=== PATIENT | male | born 1945 | race Two or more races ===

== ENCOUNTER 2017-08-07 03:28 | Emergency (ER) | payer MEDICARE, MEDICAID ==
[~2017-08-07] VITALS: Ht 182.9 cm; Wt 125.6 kg
[~2017-08-07 03:28] MED LIST: ALLO300T PO; AMLO5TAB2 PO; ASPI-621 PO; ATOR40TA PO; BENA20TA61 PO; BENA40TA2 PO; CARV12.52 PO; CARV6.2512 PO; FEBU80TA2 PO; FURO20TA3 PO; FURO40TA6 PO; HYDR-3237 PO; METO25TA91 PO; MIRT15TA6 PO; POTA20TA6 PO; SODI650T PO; TAMS0.4C2 PO; TRAM50TA2 PO; WARF1TAB9 PO; WARF3TAB7 PO; WARF6TAB7 PO
[2017-08-07 04:55] LABS: HEMATOCRIT 42.5 % (39.2-51.8); HEMOGLOBIN 14.2 g/dL (13.7-18.0)
[2017-08-07 05:07] LABS: BLOOD UREA NITROGEN 43 mg/dL (7-18)
[2017-08-07 05:43] VITALS: BP 136/84
== END 2017-08-07 05:58 | disposition home or self-care (01) ==
LOC: ED 04:01
DX: R05 Cough (principal); R06.02 Shortness of breath; R07.9 Chest pain, unspecified; I11.0 Hypertensive heart disease with heart failure; I50.9 Heart failure, unspecified; M19.90 Unspecified osteoarthritis, unspecified site; F41.9 Anxiety disorder, unspecified; E66.01 Morbid (severe) obesity due to excess calories; Z87.891 Personal history of nicotine dependence; Z88.0 Allergy status to penicillin
CPT/HCPCS: 36415; 71020; 80048; 85025; 93005; 99285

== ENCOUNTER 2017-09-08 01:04 | Emergency (ER) | payer MEDICARE, MEDICAID ==
[~2017-09-08] VITALS: Ht 182.9 cm; Wt 123.1 kg
[2017-09-08] MEDS ORDERED: SODIUM CHLORIDE FLUSH 10ML SYR IVF ONE (01:30)
[2017-09-08 01:48] LABS: HEMATOCRIT 47.9 % (39.2-51.8); HEMOGLOBIN 15.5 g/dL (13.7-18.0); WHITE BLOOD COUNT 7.1 x10^3/uL (3.4-10)
[2017-09-08 01:56] LABS: ASPARTATE AMINO TRANSFERASE 23 U/L (15-37); BLOOD UREA NITROGEN 38 mg/dL (7-18)
[2017-09-08 03:36] VITALS: BP 159/88
== END 2017-09-08 04:18 | disposition home or self-care (01) ==
LOC: ED 01:34
DX: K59.00 Constipation, unspecified (principal); I11.0 Hypertensive heart disease with heart failure; I50.9 Heart failure, unspecified; M19.90 Unspecified osteoarthritis, unspecified site; Z90.49 Acquired absence of other specified parts of digestive tract
CPT/HCPCS: 36415; 74020; 80053; 81003; 83690; 85025; 99285

== ENCOUNTER 2017-10-01 21:05 | Emergency (ER) | payer MEDICARE, MEDICAID ==
[~2017-10-01] VITALS: Ht 180.3 cm; Wt 127.1 kg
[2017-10-01 22:14] LABS: HEMATOCRIT 48.1 % (39.2-51.8); WHITE BLOOD COUNT 7.1 x10^3/uL (3.4-10)
[2017-10-01 22:24] LABS: BLOOD UREA NITROGEN 38 mg/dL (7-18)
[2017-10-01 22:29] LABS: IS PT STATUS REG ER OR PRE ER? YES
[2017-10-01] MEDS ORDERED: FURO20TA3 PO (23:19)
[2017-10-01 23:32] VITALS: BP 151/87
== END 2017-10-01 23:34 | disposition home or self-care (01) ==
LOC: ED 22:20
DX: I50.31 Acute diastolic (congestive) heart failure (principal); I48.2 Chronic atrial fibrillation; R05 Cough; R06.00 Dyspnea, unspecified; M19.90 Unspecified osteoarthritis, unspecified site; E66.01 Morbid (severe) obesity due to excess calories; Z68.39 Body mass index [BMI] 39.0-39.9, adult; Z88.0 Allergy status to penicillin; Z90.49 Acquired absence of other specified parts of digestive tract
CPT/HCPCS: 36415; 71010; 80048; 82040; 83880; 84484; 85025; 85610; 93005; 99285

== ENCOUNTER 2017-10-21 06:52 | Emergency (ER) | payer MEDICARE, MEDICAID ==
[~2017-10-21] VITALS: Ht 182.9 cm; Wt 130.8 kg
[2017-10-21 09:00] LABS: BASOPHILS # (AUTO) 0.03 x10^3/uL (0-0.1); BASOPHILS % (AUTO) 1 % (0-1); EOSINOPHILS # (AUTO) 0.37 x10^3/uL (0-0.4); EOSINOPHILS % (AUTO) 7 % (1-7); LYMPHOCYTES % (AUTO) 16 % (22-44); MD NO; MEAN CORPUSCULAR HEMOGLOBIN 29.5 pg (27.5-34.5); MEAN CORPUSCULAR HGB CONC 33.1 g/dL (33.2-36.2); MEAN CORPUSCULAR VOLUME 89.2 fL (81-97); MEAN PLATELET VOLUME 8.2 fL (7.4-10.4); MONOCYTES # (AUTO) 0.69 x10^3/uL (0.2-0.8); MONOCYTES % (AUTO) 12 % (2-9); NEUTROPHILS # (AUTO) 3.74 x10^3/uL (1.8-6.8); NEUTROPHILS % (AUTO) 65 % (42-75); PLATELET COUNT 201 x10^3/uL (130-400); RED BLOOD COUNT 5.42 x10^6/uL (4.38-5.82); RED CELL DISTRIBUTION WIDTH 15.9 % (9.4-14.8)
[2017-10-21 09:08] LABS: INTERNATIONAL NORMALIZED RATIO 2.98 (0.93-1.1); PROTHROMBIN TIME 30.3 Seconds (9.6-11.5)
[2017-10-21 09:13] LABS: ALBUMIN 3.8 g/dL (3.4-5.0); ANION GAP 6 mmol/L (5-15); CALCIUM 8.6 mg/dL (8.5-10.1); CHLORIDE 107 mmol/L (98-107); CREATININE 1.44 mg/dL (0.7-1.3)
[2017-10-21 10:06] VITALS: BP 137/73
== END 2017-10-21 10:21 | disposition home or self-care (01) ==
LOC: ED 10:14
DX: J01.10 Acute frontal sinusitis, unspecified (principal); J01.00 Acute maxillary sinusitis, unspecified; I48.91 Unspecified atrial fibrillation; I50.9 Heart failure, unspecified; I11.0 Hypertensive heart disease with heart failure
CPT/HCPCS: 36415; 71045; 80048; 82040; 83880; 85025; 85610; 93005; 99285

== ENCOUNTER 2017-10-28 14:04 | Inpatient (IN) | payer MEDICARE, MEDICAID ==
[~2017-10-28] VITALS: Ht 182.9 cm; Wt 134.5 kg
[2017-10-28] MEDS ORDERED: SODIUM CHLORIDE FLUSH 10ML SYR IVF ONE (15:00)
[2017-10-28] MEDS ORDERED: SODIUM CHLORIDE 0.9% 1,000ML IVBOLUS ONE (15:00)
[2017-10-28 15:21] LABS: BASOPHILS # (AUTO) 0.02 x10^3/uL (0-0.1); BASOPHILS % (AUTO) 0 % (0-1); EOSINOPHILS # (AUTO) 0.29 x10^3/uL (0-0.4); EOSINOPHILS % (AUTO) 4 % (1-7); LYMPHOCYTES % (AUTO) 14 % (22-44); MD NO; MEAN CORPUSCULAR HEMOGLOBIN 29.5 pg (27.5-34.5); MEAN CORPUSCULAR HGB CONC 32.8 g/dL (33.2-36.2); MEAN CORPUSCULAR VOLUME 89.9 fL (81-97); MEAN PLATELET VOLUME 8.3 fL (7.4-10.4); MONOCYTES # (AUTO) 0.77 x10^3/uL (0.2-0.8); MONOCYTES % (AUTO) 10 % (2-9); NEUTROPHILS # (AUTO) 5.75 x10^3/uL (1.8-6.8); NEUTROPHILS % (AUTO) 73 % (42-75); PLATELET COUNT 193 x10^3/uL (130-400); RED BLOOD COUNT 5.36 x10^6/uL (4.38-5.82); RED CELL DISTRIBUTION WIDTH 15.6 % (9.4-14.8)
[2017-10-28 15:32] LABS: ALBUMIN 3.6 g/dL (3.4-5.0); ANION GAP 7 mmol/L (5-15); CALCIUM 8.7 mg/dL (8.5-10.1); CHLORIDE 105 mmol/L (98-107)
[2017-10-28 15:38] LABS: ALANINE AMINOTRANSFERASE 78 U/L (12-78); ALKALINE PHOSPHATASE 117 U/L (45-117); BILIRUBIN,TOTAL 0.9 mg/dL (0.2-1.0); CREATININE 1.58 mg/dL (0.7-1.3); TOTAL PROTEIN 7.8 g/dL (6.4-8.2); TROPONIN I < 0.015 ng/mL (0.000-0.045)
[2017-10-28] MEDS ORDERED: morphine SULFATE 10 MG/ML, 1ML IVPush PRN (17:00)
[2017-10-28] MEDS ORDERED: NITROGLYCERIN 0.4 MG BOTTLE (25 TABS) SL PRN (17:00)
[2017-10-28] MEDS ORDERED: BISACODYL 10 MG SUPP PR PRN (17:00)
[2017-10-28] MEDS ORDERED: LABETALOL 5MG/ML, 20ML IVPush PRN (17:00)
[2017-10-28] MEDS ORDERED: ENALAPRILAT 1.25 MG/ML, 2ML IVPush PRN (17:00)
[2017-10-28] MEDS ORDERED: POLYETHYLENE GLYCOL 17 GM PACKET PO PRN (17:00)
[2017-10-28] MEDS ORDERED: PHARMACY MAY ADJ FOR RENAL FX MC PRN (17:30)
[2017-10-28] MEDS ORDERED: LEVOFLOXACIN/PMX 750MG/150ML 150 ML ONE (18:21)
[2017-10-28 20:44] VITALS: BP 153/74
[2017-10-28] MEDS: ATORVASTATIN 40 MG TABLET PO SCH (21:35)
[2017-10-28] MEDS: LEVOFLOXACIN/PMX 750MG/150ML 150 ML IV SCH (21:36)
[2017-10-28] MEDS: MIRTAZAPINE 15 MG TAB.RAPDIS PO PRN (21:39)
[2017-10-28] MEDS: ACETAMINOPHEN 325 MG TABLET PO PRN (23:29)
[2017-10-29] VITALS (7 sets, daily range): BP systolic 128–167; BP diastolic 71–85
[2017-10-29 05:32] LABS: BASOPHILS # (AUTO) 0.05 x10^3/uL (0-0.1); BASOPHILS % (AUTO) 1 % (0-1); EOSINOPHILS # (AUTO) 0.32 x10^3/uL (0-0.4); EOSINOPHILS % (AUTO) 5 % (1-7); LYMPHOCYTES # (AUTO) 1.02 x10^3/uL (1-3.4); LYMPHOCYTES % (AUTO) 17 % (22-44); MD NO; MEAN CORPUSCULAR HGB CONC 33.6 g/dL (33.2-36.2); MEAN CORPUSCULAR VOLUME 89.2 fL (81-97); MEAN PLATELET VOLUME 8.2 fL (7.4-10.4); MONOCYTES # (AUTO) 0.75 x10^3/uL (0.2-0.8); MONOCYTES % (AUTO) 13 % (2-9); NEUTROPHILS # (AUTO) 3.85 x10^3/uL (1.8-6.8); NEUTROPHILS % (AUTO) 64 % (42-75); PLATELET COUNT 173 x10^3/uL (130-400); RED BLOOD COUNT 5.07 x10^6/uL (4.38-5.82); RED CELL DISTRIBUTION WIDTH 15.7 % (9.4-14.8)
[2017-10-29 05:47] LABS: CHLORIDE 106 mmol/L (98-107)
[2017-10-29 05:53] LABS: ALANINE AMINOTRANSFERASE 68 U/L (12-78); ALBUMIN 3.4 g/dL (3.4-5.0); ALKALINE PHOSPHATASE 98 U/L (45-117); ANION GAP 7 mmol/L (5-15); BILIRUBIN,TOTAL 1.1 mg/dL (0.2-1.0); CALCIUM 8.7 mg/dL (8.5-10.1); CREATININE 1.47 mg/dL (0.7-1.3); TOTAL PROTEIN 7.2 g/dL (6.4-8.2)
[2017-10-29] MEDS: ASPIRIN 325 MG TABLET EC PO SCH (06:00)
[2017-10-29] MEDS ORDERED: FUROSEMIDE 40 MG/4 ML IV ONE (08:00)
[2017-10-29] MEDS: FUROSEMIDE 40 MG TABLET PO SCH (09:00)
[2017-10-29] MEDS ORDERED: ASPIRIN 81 MG TABLET EC PO SCH (09:00)
[2017-10-29] MEDS: SODIUM BICARBONATE 650 MG TABLET PO SCH (09:02)
[2017-10-29] MEDS: AMLODIPINE 5 MG TABLET PO SCH (09:02)
[2017-10-29] MEDS: FEBUXOSTAT 40 MG TABLET PO SCH (09:02)
[2017-10-29] MEDS: TAMSULOSIN 0.4 MG CAP.ER.24H PO SCH (09:02)
[2017-10-29] MEDS: POTASSIUM CHLORIDE 20 MEQ TAB.ER.PRT PO SCH (09:02)
[2017-10-29] MEDS: METOPROLOL SUCCINATE 25 MG TAB.ER.24H PO SCH (09:04)
[2017-10-29 11:43] LABS: INTERNATIONAL NORMALIZED RATIO 2.25 (0.93-1.1)
[2017-10-29] MEDS: ACETAMINOPHEN 325 MG TABLET PO PRN (13:53)
[2017-10-29] MEDS: LEVOFLOXACIN/PMX 750MG/150ML 150 ML IV SCH (16:19)
[2017-10-29] MEDS: ATORVASTATIN 40 MG TABLET PO SCH (21:45)
[2017-10-29] MEDS: MIRTAZAPINE 15 MG TAB.RAPDIS PO PRN (21:45)
[2017-10-29] MEDS: DOCUSATE 100 MG CAPSULE PO PRN (21:45)
[2017-10-30 02:15] VITALS: BP 152/83
[2017-10-30 07:07] LABS: ANION GAP 7 mmol/L (5-15); CALCIUM 8.5 mg/dL (8.5-10.1); CHLORIDE 107 mmol/L (98-107)
[2017-10-30 07:13] LABS: CREATININE 1.51 mg/dL (0.7-1.3)
[2017-10-30 07:46] VITALS: BP 141/74
[2017-10-30] MEDS: POTASSIUM CHLORIDE 20 MEQ TAB.ER.PRT PO SCH (10:22)
[2017-10-30] MEDS: FUROSEMIDE 40 MG TABLET PO SCH (10:22)
[2017-10-30] MEDS: ASPIRIN 325 MG TABLET EC PO SCH (10:23)
[2017-10-30] MEDS: TAMSULOSIN 0.4 MG CAP.ER.24H PO SCH (10:23)
[2017-10-30] MEDS: AMLODIPINE 5 MG TABLET PO SCH (10:23)
[2017-10-30] MEDS: FEBUXOSTAT 40 MG TABLET PO SCH (10:23)
[2017-10-30] MEDS: SODIUM BICARBONATE 650 MG TABLET PO SCH (10:23)
[2017-10-30 10:24] LABS: INTERNATIONAL NORMALIZED RATIO 2.15 (0.93-1.1)
[2017-10-30 10:29] LABS: ANION GAP 7 mmol/L (5-15); CALCIUM 8.8 mg/dL (8.5-10.1); CHLORIDE 106 mmol/L (98-107); CREATININE 1.46 mg/dL (0.7-1.3)
[2017-10-30] MEDS: METOPROLOL SUCCINATE 25 MG TAB.ER.24H PO SCH (11:21)
[2017-10-30 14:18] VITALS: BP 148/78
[2017-10-30] MEDS: SODIUM CHLORIDE 0.9% 1,000 ML IV SCH (16:36)
[2017-10-30] MEDS: LEVOFLOXACIN/PMX 750MG/150ML 150 ML IV SCH (16:48)
[2017-10-30 19:43] VITALS: BP 162/85
[2017-10-30] MEDS: ATORVASTATIN 40 MG TABLET PO SCH (19:57)
[2017-10-30] MEDS: MIRTAZAPINE 15 MG TAB.RAPDIS PO PRN (22:19)
[2017-10-31 01:22] VITALS: BP 142/74
[2017-10-31 05:55] LABS: BASOPHILS # (AUTO) 0.02 x10^3/uL (0-0.1); BASOPHILS % (AUTO) 0 % (0-1); EOSINOPHILS # (AUTO) 0.39 x10^3/uL (0-0.4); EOSINOPHILS % (AUTO) 7 % (1-7); LYMPHOCYTES # (AUTO) 0.83 x10^3/uL (1-3.4); LYMPHOCYTES % (AUTO) 14 % (22-44); MD NO; MEAN CORPUSCULAR HEMOGLOBIN 29.8 pg (27.5-34.5); MEAN CORPUSCULAR HGB CONC 33.5 g/dL (33.2-36.2); MEAN CORPUSCULAR VOLUME 89.2 fL (81-97); MEAN PLATELET VOLUME 8.6 fL (7.4-10.4); MONOCYTES # (AUTO) 0.79 x10^3/uL (0.2-0.8); MONOCYTES % (AUTO) 13 % (2-9); NEUTROPHILS # (AUTO) 4.02 x10^3/uL (1.8-6.8); NEUTROPHILS % (AUTO) 66 % (42-75); PLATELET COUNT 152 x10^3/uL (130-400); RED BLOOD COUNT 4.97 x10^6/uL (4.38-5.82); RED CELL DISTRIBUTION WIDTH 15.2 % (9.4-14.8)
[2017-10-31 06:04] LABS: INTERNATIONAL NORMALIZED RATIO 2.13 (0.93-1.1); PROTHROMBIN TIME 21.8 Seconds (9.6-11.5)
[2017-10-31 06:06] LABS: ANION GAP 8 mmol/L (5-15); CALCIUM 8.4 mg/dL (8.5-10.1); CHLORIDE 108 mmol/L (98-107); CREATININE 1.57 mg/dL (0.7-1.3)
[2017-10-31] MEDS: ASPIRIN 325 MG TABLET EC PO SCH (06:43)
[2017-10-31 08:05] VITALS: BP 156/77
[2017-10-31] MEDS: SODIUM CHLORIDE 0.9% 1,000 ML IV SCH (08:06)
[2017-10-31] MEDS: HYDROcodone/APAP 5/325 TABLET PO PRN ×2 (08:06→17:03)
[2017-10-31] MEDS: AMLODIPINE 5 MG TABLET PO SCH (08:07)
[2017-10-31] MEDS: METOPROLOL SUCCINATE 25 MG TAB.ER.24H PO SCH (08:07)
[2017-10-31] MEDS: POTASSIUM CHLORIDE 20 MEQ TAB.ER.PRT PO SCH (08:07)
[2017-10-31] MEDS: DOCUSATE 100 MG CAPSULE PO PRN (08:07)
[2017-10-31] MEDS: FEBUXOSTAT 40 MG TABLET PO SCH (08:07)
[2017-10-31] MEDS: TAMSULOSIN 0.4 MG CAP.ER.24H PO SCH (08:08)
[2017-10-31] MEDS: SODIUM BICARBONATE 650 MG TABLET PO SCH (08:15)
[2017-10-31 13:36] VITALS: BP 154/78
[2017-10-31] MEDS: LEVOFLOXACIN/PMX 750MG/150ML 150 ML IV SCH (18:41)
[2017-10-31 18:49] VITALS: BP 183/84
[2017-10-31] MEDS: ATORVASTATIN 40 MG TABLET PO SCH (21:22)
[2017-11-01 00:59] VITALS: BP 150/89
[2017-11-01] MEDS: HYDROcodone/APAP 5/325 TABLET PO PRN (04:31)
[2017-11-01] MEDS: ASPIRIN 325 MG TABLET EC PO SCH (04:31)
[2017-11-01 06:40] VITALS: BP 159/79
[2017-11-01] MEDS ORDERED: WARFARIN MODERAT DOSE PROTOCOL XX PRN (08:00)
[2017-11-01 08:23] LABS: INTERNATIONAL NORMALIZED RATIO 1.69 (0.93-1.1); PROTHROMBIN TIME 17.4 Seconds (9.6-11.5)
[2017-11-01] MEDS: AMLODIPINE 5 MG TABLET PO SCH ×2 (09:25→20:55)
[2017-11-01] MEDS: METOPROLOL SUCCINATE 25 MG TAB.ER.24H PO SCH (09:25)
[2017-11-01] MEDS: FEBUXOSTAT 40 MG TABLET PO SCH (09:26)
[2017-11-01] MEDS: TAMSULOSIN 0.4 MG CAP.ER.24H PO SCH (09:26)
[2017-11-01] MEDS: POTASSIUM CHLORIDE 20 MEQ TAB.ER.PRT PO SCH (09:26)
[2017-11-01] MEDS: SODIUM BICARBONATE 650 MG TABLET PO SCH (09:26)
[2017-11-01] MEDS: FUROSEMIDE 40 MG TABLET PO SCH (09:26)
[2017-11-01] MEDS: DOCUSATE 100 MG CAPSULE PO PRN (11:34)
[2017-11-01 14:34] VITALS: BP 165/91
[2017-11-01] MEDS ORDERED: WARFARIN 7.5 MG TABLET PO-COUM ONE (18:00)
[2017-11-01] MEDS: LEVOFLOXACIN/PMX 750MG/150ML 150 ML IV SCH (18:32)
[2017-11-01] MEDS ORDERED: BISACODYL 10 MG SUPP PR ONE (19:30)
[2017-11-01 20:50] VITALS: BP 170/91
[2017-11-01] MEDS: ATORVASTATIN 40 MG TABLET PO SCH (20:54)
[2017-11-02 02:25] VITALS: BP 130/77
[2017-11-02 06:03] LABS: INTERNATIONAL NORMALIZED RATIO 1.86 (0.93-1.1); PROTHROMBIN TIME 19.1 Seconds (9.6-11.5)
[2017-11-02 07:40] VITALS: BP 156/83
[2017-11-02] MEDS: FEBUXOSTAT 40 MG TABLET PO SCH (08:58)
[2017-11-02] MEDS: POTASSIUM CHLORIDE 20 MEQ TAB.ER.PRT PO SCH (08:58)
[2017-11-02] MEDS: TAMSULOSIN 0.4 MG CAP.ER.24H PO SCH (08:58)
[2017-11-02] MEDS: ASPIRIN 325 MG TABLET EC PO SCH (08:58)
[2017-11-02] MEDS: AMLODIPINE 5 MG TABLET PO SCH (08:59)
[2017-11-02] MEDS: METOPROLOL SUCCINATE 25 MG TAB.ER.24H PO SCH (08:59)
[2017-11-02] MEDS: SODIUM BICARBONATE 650 MG TABLET PO SCH (08:59)
[2017-11-02] MEDS: FUROSEMIDE 40 MG TABLET PO SCH (08:59)
[2017-11-02 12:00] VITALS: BP 147/76
[2017-11-02] MEDS ORDERED: AMLO5TAB2 PO (12:29)
[2017-11-02] MEDS ORDERED: FUROSEMIDE 40 MG/4 ML IV ONE (15:00)
[2017-11-02] MEDS ORDERED: WARFARIN 3 MG TABLET PO-COUM SCH (18:00)
== END 2017-11-02 16:42 | disposition home or self-care (01) | DRG 682 ==
LOC: ED 15:50 → EDIP 17:00 → 5SO 17:50 → EDIP 19:18 → 5SO 20:36
PROVIDERS: ADMIT Internal Medicine; ATTEND Internal Medicine
DX: N17.0 Acute kidney failure with tubular necrosis (principal); J18.9 Pneumonia, unspecified organism; J96.01 Acute respiratory failure with hypoxia; D68.69 Other thrombophilia; I13.0 Hypertensive heart and chronic kidney disease with heart failure and stage 1 through stage 4 chronic kidney disease, or unspecified chronic kidney disease; I48.2 Chronic atrial fibrillation; I50.9 Heart failure, unspecified; I08.3 Combined rheumatic disorders of mitral, aortic and tricuspid valves; I20.0 Unstable angina; Z68.41 Body mass index [BMI] 40.0-44.9, adult; E66.9 Obesity, unspecified; E78.5 Hyperlipidemia, unspecified; K59.00 Constipation, unspecified; M10.9 Gout, unspecified; M19.90 Unspecified osteoarthritis, unspecified site; N18.3 Chronic kidney disease, stage 3 (moderate); Z79.01 Long term (current) use of anticoagulants; Z79.82 Long term (current) use of aspirin; Z79.899 Other long term (current) drug therapy; Z87.442 Personal history of urinary calculi; Z87.891 Personal history of nicotine dependence; Z88.0 Allergy status to penicillin; Z90.49 Acquired absence of other specified parts of digestive tract
CPT/HCPCS: 36415; 71046; 80048; 80053; 83735; 83880; 84100; 84145; 84484; 85025; 85610; 87040; 93005; 93306; 99285; J1940; J1956; J2270; J7030

== ENCOUNTER 2017-11-18 05:25 | Emergency (ER) | payer MEDICARE, MEDICAID ==
[~2017-11-18] VITALS: Ht 182.9 cm; Wt 130.7 kg
[2017-11-18 07:39] LABS: BASOPHILS # (AUTO) 0.01 x10^3/uL (0-0.1); BASOPHILS % (AUTO) 0 % (0-1); EOSINOPHILS # (AUTO) 0.38 x10^3/uL (0-0.4); EOSINOPHILS % (AUTO) 7 % (1-7); LYMPHOCYTES # (AUTO) 0.67 x10^3/uL (1-3.4); LYMPHOCYTES % (AUTO) 12 % (22-44); MD NO; MEAN CORPUSCULAR HEMOGLOBIN 29.4 pg (27.5-34.5); MEAN CORPUSCULAR HGB CONC 32.9 g/dL (33.2-36.2); MEAN CORPUSCULAR VOLUME 89.6 fL (81-97); MEAN PLATELET VOLUME 8.6 fL (7.4-10.4); MONOCYTES # (AUTO) 0.65 x10^3/uL (0.2-0.8); MONOCYTES % (AUTO) 11 % (2-9); NEUTROPHILS # (AUTO) 4.07 x10^3/uL (1.8-6.8); NEUTROPHILS % (AUTO) 70 % (42-75); PLATELET COUNT 194 x10^3/uL (130-400); RED CELL DISTRIBUTION WIDTH 14.5 % (9.4-14.8)
[2017-11-18 07:47] LABS: ALANINE AMINOTRANSFERASE 34 U/L (12-78); ALBUMIN 3.7 g/dL (3.4-5.0); ANION GAP 6 mmol/L (5-15); CALCIUM 8.6 mg/dL (8.5-10.1); CHLORIDE 105 mmol/L (98-107); CREATININE 1.63 mg/dL (0.7-1.3)
[2017-11-18 07:51] LABS: ALKALINE PHOSPHATASE 103 U/L (45-117); BILIRUBIN,TOTAL 0.7 mg/dL (0.2-1.0); TOTAL PROTEIN 7.1 g/dL (6.4-8.2); TROPONIN I < 0.015 ng/mL (0.000-0.045)
[2017-11-18 07:58] LABS: INTERNATIONAL NORMALIZED RATIO 1.93 (0.93-1.1); PROTHROMBIN TIME 19.8 Seconds (9.6-11.5)
[2017-11-18 10:09] VITALS: BP 146/67
== END 2017-11-18 10:40 | disposition home or self-care (01) ==
LOC: ED 06:49
DX: I50.9 Heart failure, unspecified (principal); R05 Cough; E66.01 Morbid (severe) obesity due to excess calories; I48.91 Unspecified atrial fibrillation; I11.9 Hypertensive heart disease without heart failure; Z90.49 Acquired absence of other specified parts of digestive tract
CPT/HCPCS: 36415; 71045; 80053; 83605; 83880; 84145; 84484; 85025; 85610; 85730; 87040; 93005; 99285

== ENCOUNTER 2017-11-25 23:48 | Emergency (ER) | payer MEDICARE, MEDICAID ==
[~2017-11-25] VITALS: Ht 190.5 cm; Wt 131.0 kg
[2017-11-26] MEDS ORDERED: MAALOX/HYOSCYAMINE/LIDOCAINE 45 ML BTL PO ONE (00:30)
[2017-11-26] MEDS ORDERED: FAMOTIDINE 20 MG TABLET PO ONE (00:30)
[2017-11-26] MEDS ORDERED: MAALOX/HYOSCYAMINE/LIDOCAINE 45 ML BTL ONE (00:41)
[2017-11-26] MEDS ORDERED: FAMOTIDINE 20 MG TABLET ONE (00:42)
[2017-11-26 01:02] VITALS: BP 154/77
== END 2017-11-26 01:04 | disposition home or self-care (01) ==
LOC: ED 23:59
DX: K21.9 Gastro-esophageal reflux disease without esophagitis (principal); I48.91 Unspecified atrial fibrillation; E66.01 Morbid (severe) obesity due to excess calories; M10.9 Gout, unspecified; M19.90 Unspecified osteoarthritis, unspecified site; Z90.49 Acquired absence of other specified parts of digestive tract; Z88.0 Allergy status to penicillin
CPT/HCPCS: 93005; 99283

== ENCOUNTER 2017-12-09 16:09 | Emergency (ER) | payer MEDICARE, MEDICAID ==
[~2017-12-09] VITALS: Ht 182.9 cm; Wt 131.0 kg
[2017-12-09 16:50] LABS: BASOPHILS # (AUTO) 0.04 x10^3/uL (0-0.1); BASOPHILS % (AUTO) 1 % (0-1); EOSINOPHILS # (AUTO) 0.37 x10^3/uL (0-0.4); EOSINOPHILS % (AUTO) 5 % (1-7); LYMPHOCYTES # (AUTO) 1.16 x10^3/uL (1-3.4); LYMPHOCYTES % (AUTO) 16 % (22-44); MD NO; MEAN CORPUSCULAR HGB CONC 33.8 g/dL (33.2-36.2); MEAN PLATELET VOLUME 8.4 fL (7.4-10.4); MONOCYTES # (AUTO) 0.61 x10^3/uL (0.2-0.8); MONOCYTES % (AUTO) 9 % (2-9); NEUTROPHILS % (AUTO) 69 % (42-75); PLATELET COUNT 176 x10^3/uL (130-400); RED BLOOD COUNT 5.49 x10^6/uL (4.38-5.82); RED CELL DISTRIBUTION WIDTH 13.7 % (9.4-14.8)
[2017-12-09 17:03] LABS: ALANINE AMINOTRANSFERASE 47 U/L (12-78); ALBUMIN 3.7 g/dL (3.4-5.0); ANION GAP 10 mmol/L (5-15); CALCIUM 8.3 mg/dL (8.5-10.1); CHLORIDE 105 mmol/L (98-107); CREATININE 1.75 mg/dL (0.7-1.3)
[2017-12-09 17:08] LABS: ALKALINE PHOSPHATASE 122 U/L (45-117); BILIRUBIN,TOTAL 0.7 mg/dL (0.2-1.0); TROPONIN I 0.018 ng/mL (0.000-0.045)
[2017-12-09 20:57] VITALS: BP 152/82
== END 2017-12-09 20:59 | disposition home or self-care (01) ==
LOC: ED 19:37
DX: R05 Cough (principal); Z90.49 Acquired absence of other specified parts of digestive tract; E66.01 Morbid (severe) obesity due to excess calories; F41.9 Anxiety disorder, unspecified; I48.91 Unspecified atrial fibrillation; K21.9 Gastro-esophageal reflux disease without esophagitis; M10.9 Gout, unspecified; M19.90 Unspecified osteoarthritis, unspecified site
CPT/HCPCS: 36415; 71046; 80053; 83690; 83880; 84484; 85025; 93005; 99285

== ENCOUNTER 2017-12-15 02:39 | Inpatient (IN) | payer MEDICARE, MEDICAID ==
[~2017-12-15] VITALS: Ht 190.5 cm; Wt 129.0 kg
[2017-12-15 03:23] LABS: BASOPHILS # (AUTO) 0.05 x10^3/uL (0-0.1); BASOPHILS % (AUTO) 1 % (0-1); EOSINOPHILS # (AUTO) 0.31 x10^3/uL (0-0.4); EOSINOPHILS % (AUTO) 4 % (1-7); LYMPHOCYTES # (AUTO) 0.92 x10^3/uL (1-3.4); LYMPHOCYTES % (AUTO) 12 % (22-44); MD NO; MEAN CORPUSCULAR HEMOGLOBIN 29.6 pg (27.5-34.5); MEAN CORPUSCULAR HGB CONC 33.5 g/dL (33.2-36.2); MEAN CORPUSCULAR VOLUME 88.4 fL (81-97); MONOCYTES # (AUTO) 0.92 x10^3/uL (0.2-0.8); MONOCYTES % (AUTO) 12 % (2-9); NEUTROPHILS # (AUTO) 5.32 x10^3/uL (1.8-6.8); NEUTROPHILS % (AUTO) 71 % (42-75); PLATELET COUNT 176 x10^3/uL (130-400); RED BLOOD COUNT 4.89 x10^6/uL (4.38-5.82); RED CELL DISTRIBUTION WIDTH 13.9 % (9.4-14.8)
[2017-12-15 03:36] LABS: ALANINE AMINOTRANSFERASE 32 U/L (12-78); ALBUMIN 3.3 g/dL (3.4-5.0); ANION GAP 7 mmol/L (5-15); CALCIUM 8.4 mg/dL (8.5-10.1); CHLORIDE 105 mmol/L (98-107); CREATININE 1.75 mg/dL (0.7-1.3)
[2017-12-15 03:40] LABS: ALKALINE PHOSPHATASE 105 U/L (45-117); BILIRUBIN,TOTAL 0.7 mg/dL (0.2-1.0); TROPONIN I 0.016 ng/mL (0.000-0.045)
[2017-12-15 04:52] LABS: MICROSCOPIC AUTO
[2017-12-15 04:54] LABS: CULTURE INDICATED? NO
[2017-12-15] MEDS ORDERED: ONDANSETRON 2MG/ML, 2ML IVPush PRN ×2 (06:30→08:30)
[2017-12-15] MEDS ORDERED: MORPHINE SULFATE 4 MG/ML, 1ML IVPush PRN (06:30)
[2017-12-15 08:01] VITALS: BP 155/76
[2017-12-15] MEDS ORDERED: GUAIFENESIN/DM 200-20MG, 10ML UDC PO PRN (08:30)
[2017-12-15] MEDS ORDERED: NITROGLYCERIN 0.4 MG BOTTLE (25 TABS) SL PRN (08:30)
[2017-12-15] MEDS ORDERED: hydrALAzine 20 MG/ML, 1ML IVPush PRN (08:30)
[2017-12-15] MEDS ORDERED: MIRTAZAPINE 15 MG TAB.RAPDIS PO PRN (08:30)
[2017-12-15] MEDS ORDERED: DOCUSATE 100 MG CAPSULE PO PRN (08:30)
[2017-12-15] MEDS ORDERED: METOPROLOL SUCCINATE 25 MG TAB.ER.24H PO SCH (09:00)
[2017-12-15] MEDS: POTASSIUM CHLORIDE 20 MEQ TAB.ER.PRT PO SCH (09:00)
[2017-12-15 09:20] LABS: HCT (SEDRATE) 44.8 % (39.2-51.8)
[2017-12-15 09:21] LABS: INTERNATIONAL NORMALIZED RATIO 2.53 (0.93-1.1); PROTHROMBIN TIME 25.6 Seconds (9.6-11.5)
[2017-12-15 09:38] LABS: TROPONIN I < 0.015 ng/mL (0.000-0.045)
[2017-12-15] MEDS: AMLODIPINE 5 MG TABLET PO SCH ×2 (10:18→20:22)
[2017-12-15] MEDS: SODIUM BICARBONATE 650 MG TABLET PO SCH (10:19)
[2017-12-15] MEDS: BENZONATATE 100 MG CAPSULE PO SCH ×3 (10:19→20:22)
[2017-12-15] MEDS: TAMSULOSIN 0.4 MG CAP.ER.24H PO SCH (10:20)
[2017-12-15] MEDS: ASPIRIN 81 MG TABLET EC PO SCH (10:20)
[2017-12-15] MEDS: AZITHROMYCIN 500 MG TABLET PO SCH (10:20)
[2017-12-15] MEDS: FUROSEMIDE 40 MG TABLET PO SCH (10:20)
[2017-12-15] MEDS: FEBUXOSTAT 40 MG TABLET PO SCH (10:28)
[2017-12-15] MEDS: PANTOPROZOLE 40MG TABLET PO SCH (10:31)
[2017-12-15 15:20] VITALS: BP 119/73
[2017-12-15 15:49] LABS: TROPONIN I < 0.015 ng/mL (0.000-0.045)
[2017-12-15] MEDS ORDERED: ALUMINUM/MAG/SIMETHICONE 30 ML UDC PO PRN (16:00)
[2017-12-15] MEDS: WARFARIN 3 MG TABLET PO-COUM SCH (17:54)
[2017-12-15 18:38] VITALS: BP 116/65
[2017-12-15] MEDS ORDERED: ATORVASTATIN 40 MG TABLET PO SCH (21:00)
[2017-12-16 00:56] VITALS: BP 126/69
[2017-12-16 04:57] LABS: BASOPHILS # (AUTO) 0.02 x10^3/uL (0-0.1); BASOPHILS % (AUTO) 0 % (0-1); EOSINOPHILS # (AUTO) 0.32 x10^3/uL (0-0.4); EOSINOPHILS % (AUTO) 6 % (1-7); LYMPHOCYTES # (AUTO) 0.97 x10^3/uL (1-3.4); LYMPHOCYTES % (AUTO) 17 % (22-44); MD NO; MEAN CORPUSCULAR HEMOGLOBIN 29.8 pg (27.5-34.5); MEAN CORPUSCULAR HGB CONC 33.9 g/dL (33.2-36.2); MEAN CORPUSCULAR VOLUME 88.1 fL (81-97); MEAN PLATELET VOLUME 8.6 fL (7.4-10.4); MONOCYTES # (AUTO) 0.72 x10^3/uL (0.2-0.8); MONOCYTES % (AUTO) 13 % (2-9); NEUTROPHILS # (AUTO) 3.72 x10^3/uL (1.8-6.8); NEUTROPHILS % (AUTO) 65 % (42-75); PLATELET COUNT 164 x10^3/uL (130-400); RED BLOOD COUNT 4.74 x10^6/uL (4.38-5.82); RED CELL DISTRIBUTION WIDTH 13.9 % (9.4-14.8)
[2017-12-16 05:01] LABS: INTERNATIONAL NORMALIZED RATIO 2.67 (0.93-1.1)
[2017-12-16 05:09] LABS: CHLORIDE 106 mmol/L (98-107)
[2017-12-16 05:24] LABS: ANION GAP 7 mmol/L (5-15); CALCIUM 8.3 mg/dL (8.5-10.1); CHOL/HDL RATIO 3.1; CHOLESTEROL, TOTAL 74 mg/dL (140-239); CREATININE 1.64 mg/dL (0.7-1.3); HDL CHOL % 32 % (26-37); HDL CHOLESTEROL (DIRECT) 24 mg/dL (40-60); LDL CHOLESTEROL,CALCULATED 20 mg/dL (54-169); LDL/HDL RATIO 0.8 (0.5-3.0); TRIGLYCERIDES 148 mg/dL (50-200); VLDL CHOLESTEROL 30 mg/dL (0-25)
[2017-12-16 08:01] VITALS: BP 138/79
[2017-12-16] MEDS ORDERED: METOPROLOL SUCCINATE 25 MG TAB.ER.24H PO SCH (09:00)
[2017-12-16] MEDS: ASPIRIN 81 MG TABLET EC PO SCH (10:03)
[2017-12-16] MEDS: PANTOPROZOLE 40MG TABLET PO SCH (10:03)
[2017-12-16] MEDS: FUROSEMIDE 40 MG TABLET PO SCH (10:04)
[2017-12-16] MEDS: BENZONATATE 100 MG CAPSULE PO SCH ×2 (10:04→18:01)
[2017-12-16] MEDS: TAMSULOSIN 0.4 MG CAP.ER.24H PO SCH (10:04)
[2017-12-16] MEDS: SODIUM BICARBONATE 650 MG TABLET PO SCH (10:04)
[2017-12-16] MEDS: AMLODIPINE 5 MG TABLET PO SCH (10:04)
[2017-12-16] MEDS: AZITHROMYCIN 500 MG TABLET PO SCH (10:04)
[2017-12-16] MEDS: POTASSIUM CHLORIDE 20 MEQ TAB.ER.PRT PO SCH (10:04)
[2017-12-16] MEDS: FEBUXOSTAT 40 MG TABLET PO SCH (10:11)
[2017-12-16] MEDS ORDERED: MAGNESIUM HYDROXIDE 8%, 30ML UDC PO PRN (13:00)
[2017-12-16 13:23] VITALS: BP 111/68
[2017-12-16] MEDS ORDERED: POLYETHYLENE GLYCOL 17 GM PACKET NG PRN (13:30)
[2017-12-16] MEDS ORDERED: CEFD300C37 PO (16:38)
[2017-12-16] MEDS ORDERED: BENZ-17 PO (16:38)
[2017-12-16] MEDS: WARFARIN 3 MG TABLET PO-COUM SCH (18:01)
== END 2017-12-16 18:40 | disposition home or self-care (01) | DRG 291 ==
LOC: ED 03:21 → EDIP 06:36 → 5SO 07:26
PROVIDERS: ADMIT Hospitalist; ATTEND Hospitalist
DX: I13.0 Hypertensive heart and chronic kidney disease with heart failure and stage 1 through stage 4 chronic kidney disease, or unspecified chronic kidney disease (principal); I50.31 Acute diastolic (congestive) heart failure; D68.69 Other thrombophilia; I48.2 Chronic atrial fibrillation; N18.3 Chronic kidney disease, stage 3 (moderate); Z79.01 Long term (current) use of anticoagulants; J98.11 Atelectasis; K59.00 Constipation, unspecified; I48.91 Unspecified atrial fibrillation; J20.9 Acute bronchitis, unspecified; E78.5 Hyperlipidemia, unspecified; I25.10 Atherosclerotic heart disease of native coronary artery without angina pectoris; I45.9 Conduction disorder, unspecified; M10.9 Gout, unspecified; M19.90 Unspecified osteoarthritis, unspecified site; N40.0 Benign prostatic hyperplasia without lower urinary tract symptoms; Z87.442 Personal history of urinary calculi; N20.0 Calculus of kidney; R07.89 Other chest pain
CPT/HCPCS: 36415; 71045; 74176; 80048; 80053; 80061; 81001; 82962; 83690; 83735; 83880; 84100; 84145; 84443; 84484; 85025; 85610; 85651; 86140; 87040; 87070; 87205; 93005; 99285; J2405

== ENCOUNTER 2018-01-17 06:03 | Inpatient (IN) | payer MEDICARE, MEDICAID ==
[~2018-01-17] VITALS: Ht 185.4 cm; Wt 133.4 kg
[~2018-01-17 06:03] MED LIST changes: +BENZ-17 PO; +CEFD300C37 PO; +WARF3TAB52 PO; -WARF3TAB7 PO
[2018-01-17] MEDS ORDERED: SODIUM CHLORIDE FLUSH 10ML SYR IVF ONE (06:30)
[2018-01-17 06:45] LABS: BASOPHILS # (AUTO) 0.01 x10^3/uL (0-0.1); BASOPHILS % (AUTO) 0 % (0-1); EOSINOPHILS # (AUTO) 0.32 x10^3/uL (0-0.4); EOSINOPHILS % (AUTO) 5 % (1-7); LYMPHOCYTES # (AUTO) 0.75 x10^3/uL (1-3.4); LYMPHOCYTES % (AUTO) 13 % (22-44); MD NO; MEAN CORPUSCULAR HEMOGLOBIN 29.5 pg (27.5-34.5); MEAN CORPUSCULAR HGB CONC 33.6 g/dL (33.2-36.2); MEAN CORPUSCULAR VOLUME 87.9 fL (81-97); MEAN PLATELET VOLUME 8.3 fL (7.4-10.4); MONOCYTES # (AUTO) 0.63 x10^3/uL (0.2-0.8); MONOCYTES % (AUTO) 11 % (2-9); NEUTROPHILS % (AUTO) 71 % (42-75); PLATELET COUNT 166 x10^3/uL (130-400); RED BLOOD COUNT 5.09 x10^6/uL (4.38-5.82); RED CELL DISTRIBUTION WIDTH 14.6 % (9.4-14.8)
[2018-01-17 06:53] LABS: INTERNATIONAL NORMALIZED RATIO 1.69 (0.93-1.1); PROTHROMBIN TIME 17.4 Seconds (9.6-11.5)
[2018-01-17 06:57] LABS: ALBUMIN 3.6 g/dL (3.4-5.0); ANION GAP 8 mmol/L (5-15); CALCIUM 8.4 mg/dL (8.5-10.1); CHLORIDE 105 mmol/L (98-107)
[2018-01-17 07:02] LABS: ALANINE AMINOTRANSFERASE 45 U/L (12-78); ALKALINE PHOSPHATASE 110 U/L (45-117); BILIRUBIN,TOTAL 1.2 mg/dL (0.2-1.0); CREATININE 1.57 mg/dL (0.7-1.3); TOTAL PROTEIN 7.7 g/dL (6.4-8.2); TROPONIN I 0.018 ng/mL (0.000-0.045)
[2018-01-17] MEDS ORDERED: ACET650S21 PO (07:16)
[2018-01-17] MEDS ORDERED: CEFTRIAXONE PMX 1GM/50ML 50 ML ONE (08:19)
[2018-01-17] MEDS ORDERED: CEFTRIAXONE PMX 1GM/50ML 50 ML IVPB ONE (09:00)
[2018-01-17] MEDS ORDERED: ASPIRIN 81 MG TABLET CHEW PO ONE (10:00)
[2018-01-17] MEDS ORDERED: ASPIRIN 81 MG TABLET CHEW ONE (10:12)
[2018-01-17] MEDS ORDERED: ONDANSETRON 2MG/ML, 2ML IVPush PRN (11:00)
[2018-01-17] MEDS ORDERED: POLYETHYLENE GLYCOL 17 GM PACKET PO PRN (11:00)
[2018-01-17] MEDS ORDERED: hydrALAzine 20 MG/ML, 1ML IVPush PRN (11:00)
[2018-01-17 11:26] LABS: TROPONIN I 0.021 ng/mL (0.000-0.045)
[2018-01-17 12:08] VITALS: BP 151/76
[2018-01-17] MEDS ORDERED: FUROSEMIDE 40 MG/4 ML ONE (12:50)
[2018-01-17] MEDS: POTASSIUM CHLORIDE 20 MEQ TAB.ER.PRT PO SCH ×2 (12:57→18:08)
[2018-01-17] MEDS ORDERED: FUROSEMIDE 40 MG/4 ML IV ONE (13:00)
[2018-01-17 14:00] VITALS: BP 151/76
[2018-01-17] MEDS: SODIUM CHLORIDE 0.9% 1,000 ML IV SCH (15:40)
[2018-01-17 17:00] LABS: TROPONIN I 0.018 ng/mL (0.000-0.045)
[2018-01-17] MEDS: WARFARIN 3 MG TABLET PO-COUM SCH (18:00)
[2018-01-17 19:11] VITALS: BP 145/81
[2018-01-17 19:49] LABS: MICROSCOPIC AUTO
[2018-01-17 20:00] LABS: CULTURE INDICATED? YES
[2018-01-17] MEDS: ATORVASTATIN 40 MG TABLET PO SCH (21:48)
[2018-01-17] MEDS: AMLODIPINE 5 MG TABLET PO SCH (21:48)
[2018-01-17 21:49] VITALS: BP 154/73
[2018-01-18] VITALS (7 sets, daily range): BP systolic 131–188; BP diastolic 74–94
[2018-01-18] MEDS: GUAIFENESIN/DM 200-20MG, 10ML UDC PO PRN (00:30)
[2018-01-18] MEDS: MIRTAZAPINE 15 MG TAB.RAPDIS PO PRN ×2 (00:31→22:09)
[2018-01-18] MEDS: SODIUM CHLORIDE 0.9% 1,000 ML IV SCH (03:03)
[2018-01-18 05:29] LABS: CHLORIDE 110 mmol/L (98-107)
[2018-01-18 05:30] LABS: BASOPHILS # (AUTO) 0.02 x10^3/uL (0-0.1); BASOPHILS % (AUTO) 0 % (0-1); EOSINOPHILS # (AUTO) 0.34 x10^3/uL (0-0.4); EOSINOPHILS % (AUTO) 5 % (1-7); LYMPHOCYTES % (AUTO) 14 % (22-44); MD NO; MEAN CORPUSCULAR HEMOGLOBIN 29.5 pg (27.5-34.5); MEAN CORPUSCULAR HGB CONC 33.1 g/dL (33.2-36.2); MEAN PLATELET VOLUME 8.9 fL (7.4-10.4); MONOCYTES # (AUTO) 0.74 x10^3/uL (0.2-0.8); MONOCYTES % (AUTO) 12 % (2-9); NEUTROPHILS # (AUTO) 4.43 x10^3/uL (1.8-6.8); NEUTROPHILS % (AUTO) 69 % (42-75); PLATELET COUNT 158 x10^3/uL (130-400); RED BLOOD COUNT 4.87 x10^6/uL (4.38-5.82); RED CELL DISTRIBUTION WIDTH 13.9 % (9.4-14.8)
[2018-01-18 05:52] LABS: ALANINE AMINOTRANSFERASE 42 U/L (12-78); ALBUMIN 3.3 g/dL (3.4-5.0); ALKALINE PHOSPHATASE 95 U/L (45-117); ANION GAP 8 mmol/L (5-15); CALCIUM 8.1 mg/dL (8.5-10.1); CREATININE 1.41 mg/dL (0.7-1.3); TOTAL PROTEIN 6.9 g/dL (6.4-8.2)
[2018-01-18] MEDS: BENZONATATE 100 MG CAPSULE PO PRN ×2 (06:24→20:52)
[2018-01-18] MEDS: FEBUXOSTAT 40 MG TABLET PO SCH (08:32)
[2018-01-18] MEDS: SODIUM BICARBONATE 650 MG TABLET PO SCH (08:32)
[2018-01-18] MEDS: AMLODIPINE 5 MG TABLET PO SCH ×2 (08:33→20:52)
[2018-01-18] MEDS: FUROSEMIDE 40 MG TABLET PO SCH (08:33)
[2018-01-18] MEDS: ASPIRIN 81 MG TABLET EC PO SCH (08:33)
[2018-01-18] MEDS: POTASSIUM CHLORIDE 20 MEQ TAB.ER.PRT PO SCH (08:33)
[2018-01-18] MEDS: METOPROLOL SUCCINATE 25 MG TAB.ER.24H PO SCH (08:33)
[2018-01-18] MEDS: TAMSULOSIN 0.4 MG CAP.ER.24H PO SCH (08:33)
[2018-01-18] MEDS ORDERED: WARFARIN 3 MG TABLET PO-COUM SCH (09:00)
[2018-01-18] MEDS ORDERED: ALBUTEROL SULFATE 2.5 MG/3 ML NPPB ONE (09:00)
[2018-01-18] MEDS ORDERED: OMEP-110 PO (09:06)
[2018-01-18] MEDS: PANTOPROZOLE 40MG TABLET PO SCH (10:45)
[2018-01-18] MEDS ORDERED: METOPROLOL TARTRATE 50 MG TABLET PO ONE (12:30)
[2018-01-18] MEDS ORDERED: hydrALAzine 20 MG/ML, 1ML IVPush PRN (15:00)
[2018-01-18] MEDS ORDERED: ONDANSETRON 2MG/ML, 2ML IVPush PRN (15:39)
[2018-01-18] MEDS ORDERED: ONDANSETRON ODT 4 MG PO PRN (16:00)
[2018-01-18] MEDS: ACETAMINOPHEN 650 MG/20.3 ML UDC PO PRN ×2 (16:12→22:09)
[2018-01-18] MEDS: WARFARIN 3 MG TABLET PO-COUM SCH (16:51)
[2018-01-18] MEDS: ATORVASTATIN 40 MG TABLET PO SCH (20:52)
[2018-01-19] VITALS (9 sets, daily range): BP systolic 145–177; BP diastolic 67–95
[2018-01-19 08:15] LABS: BASOPHILS # (AUTO) 0.01 x10^3/uL (0-0.1); BASOPHILS % (AUTO) 0 % (0-1); EOSINOPHILS # (AUTO) 0.32 x10^3/uL (0-0.4); EOSINOPHILS % (AUTO) 5 % (1-7); LYMPHOCYTES # (AUTO) 0.78 x10^3/uL (1-3.4); LYMPHOCYTES % (AUTO) 12 % (22-44); MD NO; MEAN CORPUSCULAR HEMOGLOBIN 29.3 pg (27.5-34.5); MEAN CORPUSCULAR HGB CONC 33.4 g/dL (33.2-36.2); MEAN CORPUSCULAR VOLUME 87.9 fL (81-97); MEAN PLATELET VOLUME 8.6 fL (7.4-10.4); MONOCYTES # (AUTO) 0.77 x10^3/uL (0.2-0.8); MONOCYTES % (AUTO) 12 % (2-9); NEUTROPHILS # (AUTO) 4.69 x10^3/uL (1.8-6.8); NEUTROPHILS % (AUTO) 71 % (42-75); PLATELET COUNT 169 x10^3/uL (130-400); RED BLOOD COUNT 4.95 x10^6/uL (4.38-5.82); RED CELL DISTRIBUTION WIDTH 14.5 % (9.4-14.8)
[2018-01-19 08:26] LABS: ALBUMIN 3.5 g/dL (3.4-5.0); ANION GAP 7 mmol/L (5-15); CALCIUM 8.4 mg/dL (8.5-10.1); CHLORIDE 110 mmol/L (98-107); CREATININE 1.46 mg/dL (0.7-1.3)
[2018-01-19] MEDS: FUROSEMIDE 40 MG TABLET PO SCH (08:39)
[2018-01-19] MEDS: SODIUM BICARBONATE 650 MG TABLET PO SCH (08:40)
[2018-01-19] MEDS: TAMSULOSIN 0.4 MG CAP.ER.24H PO SCH (08:40)
[2018-01-19] MEDS: POTASSIUM CHLORIDE 20 MEQ TAB.ER.PRT PO SCH (08:40)
[2018-01-19] MEDS: FEBUXOSTAT 40 MG TABLET PO SCH (08:41)
[2018-01-19] MEDS: AMLODIPINE 5 MG TABLET PO SCH ×2 (08:41→20:22)
[2018-01-19] MEDS: PANTOPROZOLE 40MG TABLET PO SCH (08:43)
[2018-01-19] MEDS: METOPROLOL SUCCINATE 25 MG TAB.ER.24H PO SCH (08:43)
[2018-01-19] MEDS: ASPIRIN 81 MG TABLET EC PO SCH (08:49)
[2018-01-19 10:15] LABS: INTERNATIONAL NORMALIZED RATIO 2.37 (0.93-1.1)
[2018-01-19] MEDS: CHLORTHALIDONE 25 MG TABLET PO SCH (11:24)
[2018-01-19] MEDS: WARFARIN 3 MG TABLET PO-COUM SCH (17:46)
[2018-01-19] MEDS: ATORVASTATIN 40 MG TABLET PO SCH (20:22)
[2018-01-20] MEDS: MIRTAZAPINE 15 MG TAB.RAPDIS PO PRN ×2 (00:26→22:49)
[2018-01-20 00:31] VITALS: BP 162/70
[2018-01-20 04:59] LABS: BASOPHILS % (AUTO) 0 % (0-1); EOSINOPHILS # (AUTO) 0.36 x10^3/uL (0-0.4); EOSINOPHILS % (AUTO) 6 % (1-7); LYMPHOCYTES # (AUTO) 0.87 x10^3/uL (1-3.4); LYMPHOCYTES % (AUTO) 13 % (22-44); MD NO; MEAN CORPUSCULAR HEMOGLOBIN 29.4 pg (27.5-34.5); MEAN CORPUSCULAR HGB CONC 33.3 g/dL (33.2-36.2); MEAN CORPUSCULAR VOLUME 88.4 fL (81-97); MEAN PLATELET VOLUME 8.6 fL (7.4-10.4); MONOCYTES % (AUTO) 11 % (2-9); NEUTROPHILS # (AUTO) 4.58 x10^3/uL (1.8-6.8); NEUTROPHILS % (AUTO) 70 % (42-75); PLATELET COUNT 161 x10^3/uL (130-400); RED BLOOD COUNT 4.81 x10^6/uL (4.38-5.82); RED CELL DISTRIBUTION WIDTH 14.6 % (9.4-14.8)
[2018-01-20 05:24] LABS: ALBUMIN 3.4 g/dL (3.4-5.0); ANION GAP 8 mmol/L (5-15); CALCIUM 8.2 mg/dL (8.5-10.1); CHLORIDE 111 mmol/L (98-107); CREATININE 1.42 mg/dL (0.7-1.3)
[2018-01-20] MEDS: LISINOPRIL 20 MG TABLET PO SCH ×2 (07:15→09:00)
[2018-01-20 07:55] LABS: INTERNATIONAL NORMALIZED RATIO 2.27 (0.93-1.1)
[2018-01-20 08:43] VITALS: BP 172/76
[2018-01-20] MEDS: TAMSULOSIN 0.4 MG CAP.ER.24H PO SCH (08:54)
[2018-01-20] MEDS: POTASSIUM CHLORIDE 20 MEQ TAB.ER.PRT PO SCH (08:54)
[2018-01-20] MEDS: PANTOPROZOLE 40MG TABLET PO SCH (08:54)
[2018-01-20] MEDS: SODIUM BICARBONATE 650 MG TABLET PO SCH (08:54)
[2018-01-20] MEDS: ASPIRIN 81 MG TABLET EC PO SCH (08:54)
[2018-01-20] MEDS: METOPROLOL SUCCINATE 25 MG TAB.ER.24H PO SCH (08:55)
[2018-01-20] MEDS: FEBUXOSTAT 40 MG TABLET PO SCH (08:55)
[2018-01-20] MEDS: FUROSEMIDE 20 MG/2 ML IV SCH (08:56)
[2018-01-20] MEDS: CHLORTHALIDONE 25 MG TABLET PO SCH (08:56)
[2018-01-20] MEDS: AMLODIPINE 5 MG TABLET PO SCH ×2 (08:56→19:51)
[2018-01-20 10:18] VITALS: BP 143/71
[2018-01-20 12:00] VITALS: BP 150/83
[2018-01-20] MEDS: GUAIFENESIN/DM 200-20MG, 10ML UDC PO PRN (14:42)
[2018-01-20 15:56] VITALS: BP 138/73
[2018-01-20] MEDS: ISOSORBIDE MONONITRATE ER 30 MG TABLET PO SCH (16:24)
[2018-01-20] MEDS ORDERED: WARF3TAB PO (17:24)
[2018-01-20] MEDS ORDERED: WARFARIN 3 MG TABLET PO-COUM ONE (17:27)
[2018-01-20] MEDS ORDERED: WARFARIN 3 MG TABLET PO-COUM SCH ×3 (18:00)
[2018-01-20 18:22] VITALS: BP 130/79
[2018-01-20] MEDS: ATORVASTATIN 40 MG TABLET PO SCH (19:51)
[2018-01-21 04:28] VITALS: BP 161/73
[2018-01-21 05:15] LABS: BASOPHILS # (AUTO) 0.01 x10^3/uL (0-0.1); BASOPHILS % (AUTO) 0 % (0-1); EOSINOPHILS # (AUTO) 0.34 x10^3/uL (0-0.4); EOSINOPHILS % (AUTO) 5 % (1-7); LYMPHOCYTES # (AUTO) 0.98 x10^3/uL (1-3.4); LYMPHOCYTES % (AUTO) 15 % (22-44); MD NO; MEAN CORPUSCULAR HEMOGLOBIN 29.6 pg (27.5-34.5); MEAN CORPUSCULAR HGB CONC 33.3 g/dL (33.2-36.2); MEAN CORPUSCULAR VOLUME 88.8 fL (81-97); MEAN PLATELET VOLUME 8.2 fL (7.4-10.4); MONOCYTES # (AUTO) 0.77 x10^3/uL (0.2-0.8); MONOCYTES % (AUTO) 12 % (2-9); NEUTROPHILS # (AUTO) 4.41 x10^3/uL (1.8-6.8); NEUTROPHILS % (AUTO) 68 % (42-75); PLATELET COUNT 162 x10^3/uL (130-400); RED BLOOD COUNT 4.69 x10^6/uL (4.38-5.82); RED CELL DISTRIBUTION WIDTH 14.9 % (9.4-14.8)
[2018-01-21 05:30] LABS: CHLORIDE 108 mmol/L (98-107)
[2018-01-21 05:35] LABS: ALBUMIN 3.3 g/dL (3.4-5.0); ANION GAP 10 mmol/L (5-15); CALCIUM 8.4 mg/dL (8.5-10.1); CREATININE 1.66 mg/dL (0.7-1.3)
[2018-01-21 07:50] VITALS: BP 138/73
[2018-01-21] MEDS: PANTOPROZOLE 40MG TABLET PO SCH (08:28)
[2018-01-21] MEDS: TAMSULOSIN 0.4 MG CAP.ER.24H PO SCH (08:29)
[2018-01-21] MEDS: FUROSEMIDE 20 MG/2 ML IV SCH (08:29)
[2018-01-21] MEDS: CHLORTHALIDONE 25 MG TABLET PO SCH (08:29)
[2018-01-21] MEDS: ASPIRIN 81 MG TABLET EC PO SCH (08:29)
[2018-01-21] MEDS: ISOSORBIDE MONONITRATE ER 30 MG TABLET PO SCH (08:29)
[2018-01-21] MEDS: POTASSIUM CHLORIDE 20 MEQ TAB.ER.PRT PO SCH (08:29)
[2018-01-21] MEDS: SODIUM BICARBONATE 650 MG TABLET PO SCH (08:30)
[2018-01-21] MEDS: METOPROLOL SUCCINATE 25 MG TAB.ER.24H PO SCH (08:30)
[2018-01-21] MEDS: AMLODIPINE 5 MG TABLET PO SCH (08:30)
[2018-01-21] MEDS: LISINOPRIL 20 MG TABLET PO SCH (08:30)
[2018-01-21 08:41] LABS: INTERNATIONAL NORMALIZED RATIO 2.37 (0.93-1.1)
[2018-01-21] MEDS: FEBUXOSTAT 40 MG TABLET PO SCH (09:00)
[2018-01-21] MEDS ORDERED: LISI-170 PO (11:06)
[2018-01-21] MEDS ORDERED: ISOS30TA8 PO (11:06)
[2018-01-21] MEDS ORDERED: CHLO25TA PO (11:06)
[2018-01-21 13:00] VITALS: BP 104/58
[2018-01-24] MEDS ORDERED: WARFARIN 3 MG TABLET PO-COUM SCH (18:00)
== END 2018-01-21 15:05 | disposition home or self-care (01) | DRG 291 ==
LOC: ED 08:41 → EDIP 09:48 → 5SO 11:27 → DCLOUNGE 01-21 14:35
PROVIDERS: ADMIT Hospitalist; ATTEND Hospitalist
DX: I13.0 Hypertensive heart and chronic kidney disease with heart failure and stage 1 through stage 4 chronic kidney disease, or unspecified chronic kidney disease (principal); I50.33 Acute on chronic diastolic (congestive) heart failure; D68.69 Other thrombophilia; I48.2 Chronic atrial fibrillation; N18.3 Chronic kidney disease, stage 3 (moderate); N39.0 Urinary tract infection, site not specified; J98.11 Atelectasis; E66.01 Morbid (severe) obesity due to excess calories; M19.90 Unspecified osteoarthritis, unspecified site; N40.0 Benign prostatic hyperplasia without lower urinary tract symptoms; E78.5 Hyperlipidemia, unspecified; K21.9 Gastro-esophageal reflux disease without esophagitis; Z79.01 Long term (current) use of anticoagulants; Z79.82 Long term (current) use of aspirin; Z79.899 Other long term (current) drug therapy; Z87.442 Personal history of urinary calculi; Z87.891 Personal history of nicotine dependence; K59.00 Constipation, unspecified; M10.9 Gout, unspecified; Z90.49 Acquired absence of other specified parts of digestive tract; Z88.0 Allergy status to penicillin
CPT/HCPCS: 36415; 70450; 71045; 71250; 80048; 80053; 81001; 82040; 83735; 83880; 84100; 84443; 84484; 85025; 85610; 87086; 93005; 93306; 93922; 96365; J0696; J1940; J7613; J0360; J7030

== ENCOUNTER 2018-05-10 01:16 | Inpatient (IN) | payer MEDICARE, MEDICAID ==
[~2018-05-10] VITALS: Ht 190.5 cm; Wt 127.9 kg
[~2018-05-10 01:16] MED LIST changes: +ACET-1770 PO; +ACET650S21 PO; +CHLO25TA PO; +ISOS30TA8 PO; +LISI-170 PO; +METO-93 PO; +OMEP-110 PO; +WARF3TAB PO; +WARF6TAB PO; +WARF6TAB47 PO; -WARF6TAB7 PO
[2018-05-10 01:52] LABS: BASOPHILS # (AUTO) 0.07 x10^3/uL (0-0.1); BASOPHILS % (AUTO) 1 % (0-1); EOSINOPHILS # (AUTO) 0.21 x10^3/uL (0-0.4); EOSINOPHILS % (AUTO) 2 % (1-7); LYMPHOCYTES # (AUTO) 1.07 x10^3/uL (1-3.4); LYMPHOCYTES % (AUTO) 11 % (22-44); MD NO; MEAN CORPUSCULAR HEMOGLOBIN 30.6 pg (27.5-34.5); MEAN CORPUSCULAR HGB CONC 33.9 g/dL (33.2-36.2); MEAN CORPUSCULAR VOLUME 90.1 fL (81-97); MEAN PLATELET VOLUME 8.3 fL (7.4-10.4); MONOCYTES # (AUTO) 1.13 x10^3/uL (0.2-0.8); MONOCYTES % (AUTO) 11 % (2-9); NEUTROPHILS # (AUTO) 7.41 x10^3/uL (1.8-6.8); NEUTROPHILS % (AUTO) 75 % (42-75); PLATELET COUNT 208 x10^3/uL (130-400); RED BLOOD COUNT 4.82 x10^6/uL (4.38-5.82); RED CELL DISTRIBUTION WIDTH 14.9 % (9.4-14.8)
[2018-05-10 01:56] LABS: MICROSCOPIC NOT IND
[2018-05-10] MEDS ORDERED: METHOCARBAMOL 750 MG TABLET ONE (01:56)
[2018-05-10] MEDS ORDERED: METHOCARBAMOL 750 MG TABLET PO ONE (02:00)
[2018-05-10 02:04] LABS: ALANINE AMINOTRANSFERASE 21 U/L (12-78); ALBUMIN 3.3 g/dL (3.4-5.0); ANION GAP 12 mmol/L (5-15); CHLORIDE 98 mmol/L (98-107); CREATININE 2.68 mg/dL (0.7-1.3)
[2018-05-10 02:06] LABS: CULTURE INDICATED? NO
[2018-05-10 02:07] LABS: ALKALINE PHOSPHATASE 79 U/L (45-117); BILIRUBIN,TOTAL 1.1 mg/dL (0.2-1.0); INTERNATIONAL NORMALIZED RATIO 2.6 (0.93-1.1); PROTHROMBIN TIME 26.5 Seconds (9.6-11.5); TOTAL PROTEIN 7.6 g/dL (6.4-8.2)
[2018-05-10 02:17] LABS: TROPONIN I 0.026 ng/mL (0.000-0.045)
[2018-05-10] MEDS ORDERED: SODIUM CHLORIDE 0.9% 1,000ML IVBOLUS ONE (03:00)
[2018-05-10] MEDS ORDERED: POTASSIUM CHLORIDE 20 MEQ in SODIUM CHLORIDE 0.9% 250 ML IV ONE (03:00)
[2018-05-10] MEDS ORDERED: SODIUM CHLORIDE FLUSH 10ML SYR IVF ONE (03:00)
[2018-05-10] MEDS ORDERED: CHLO25TA PO (04:14)
[2018-05-10 05:34] VITALS: BP 128/80
[2018-05-10] MEDS ORDERED: ONDANSETRON 2MG/ML, 2ML IVPush PRN (06:00)
[2018-05-10] MEDS ORDERED: morphine SULFATE 10 MG/ML, 1ML IVPush PRN (06:00)
[2018-05-10] MEDS ORDERED: hydrALAzine 20 MG/ML, 1ML IVPush PRN (06:00)
[2018-05-10] MEDS ORDERED: ACETAMINOPHEN 325 MG TABLET PO PRN (06:00)
[2018-05-10] MEDS: NS + 20MEQ KCL 1,000 ML IV SCH ×2 (06:43→18:52)
[2018-05-10] MEDS: METOPROLOL SUCCINATE 50 MG TAB.ER.24H PO SCH (06:43)
[2018-05-10 06:52] VITALS: BP 127/68
[2018-05-10] MEDS ORDERED: LACTULOSE 10 GM/15 ML UDC PO SCH (09:00)
[2018-05-10] MEDS: FEBUXOSTAT 40 MG TABLET PO SCH (09:34)
[2018-05-10] MEDS: TAMSULOSIN 0.4 MG CAP.ER.24H PO SCH (09:34)
[2018-05-10] MEDS: SODIUM BICARBONATE 650 MG TABLET PO SCH (09:34)
[2018-05-10 13:47] VITALS: BP 150/77
[2018-05-10] MEDS ORDERED: WARFARIN 3 MG TABLET PO-COUM SCH (18:00)
[2018-05-10] MEDS: BISACODYL 10 MG SUPP PR PRN (18:05)
[2018-05-10 18:25] VITALS: BP 167/85
[2018-05-10] MEDS ORDERED: POLYETHYLENE GLYCOL 17 GM PACKET PO ONE (19:30)
[2018-05-10 20:10] LABS: INTERNATIONAL NORMALIZED RATIO 3.31 (0.93-1.1); PROTHROMBIN TIME 33.6 Seconds (9.6-11.5)
[2018-05-10] MEDS: ATORVASTATIN 40 MG TABLET PO SCH (20:35)
[2018-05-10] MEDS: OMEPRAZOLE 20 MG CAPSULE.DR PO SCH (20:35)
[2018-05-11 01:05] VITALS: BP 155/80
[2018-05-11] MEDS: METOPROLOL SUCCINATE 50 MG TAB.ER.24H PO SCH (03:18)
[2018-05-11] MEDS: BISACODYL 10 MG SUPP PR PRN (03:27)
[2018-05-11 04:53] LABS: BASOPHILS # (AUTO) 0.02 x10^3/uL (0-0.1); BASOPHILS % (AUTO) 0 % (0-1); EOSINOPHILS # (AUTO) 0.11 x10^3/uL (0-0.4); EOSINOPHILS % (AUTO) 1 % (1-7); LYMPHOCYTES # (AUTO) 0.81 x10^3/uL (1-3.4); LYMPHOCYTES % (AUTO) 8 % (22-44); MD NO; MEAN CORPUSCULAR HEMOGLOBIN 30.3 pg (27.5-34.5); MEAN CORPUSCULAR HGB CONC 33.5 g/dL (33.2-36.2); MEAN CORPUSCULAR VOLUME 90.3 fL (81-97); MEAN PLATELET VOLUME 8.3 fL (7.4-10.4); MONOCYTES # (AUTO) 0.96 x10^3/uL (0.2-0.8); MONOCYTES % (AUTO) 10 % (2-9); NEUTROPHILS # (AUTO) 7.78 x10^3/uL (1.8-6.8); NEUTROPHILS % (AUTO) 80 % (42-75); PLATELET COUNT 228 x10^3/uL (130-400); RED BLOOD COUNT 4.79 x10^6/uL (4.38-5.82); RED CELL DISTRIBUTION WIDTH 15.3 % (9.4-14.8)
[2018-05-11 04:58] LABS: ALBUMIN 3.3 g/dL (3.4-5.0); ANION GAP 10 mmol/L (5-15); CALCIUM 8.3 mg/dL (8.5-10.1); CHLORIDE 102 mmol/L (98-107)
[2018-05-11 04:59] LABS: INTERNATIONAL NORMALIZED RATIO 3.28 (0.93-1.1); PROTHROMBIN TIME 33.3 Seconds (9.6-11.5)
[2018-05-11 05:02] LABS: ALANINE AMINOTRANSFERASE 21 U/L (12-78); ALKALINE PHOSPHATASE 77 U/L (45-117); BILIRUBIN,TOTAL 1.4 mg/dL (0.2-1.0); CREATININE 1.76 mg/dL (0.7-1.3); TOTAL PROTEIN 7.6 g/dL (6.4-8.2)
[2018-05-11 06:33] VITALS: BP 146/68
[2018-05-11] MEDS ORDERED: MAGNESIUM CITRATE 300ML ORAL SOL PO ONE (08:30)
[2018-05-11] MEDS: SODIUM CHLORIDE 0.9% 1,000 ML IV SCH ×2 (08:30→18:30)
[2018-05-11] MEDS: POLYETHYLENE GLYCOL 17 GM PACKET PO SCH (09:00)
[2018-05-11] MEDS: SODIUM BICARBONATE 650 MG TABLET PO SCH (09:01)
[2018-05-11] MEDS: FEBUXOSTAT 40 MG TABLET PO SCH (09:01)
[2018-05-11] MEDS: TAMSULOSIN 0.4 MG CAP.ER.24H PO SCH (09:01)
[2018-05-11 11:15] LABS: MICROSCOPIC AUTO
[2018-05-11 11:16] LABS: CULTURE INDICATED? NO
[2018-05-11 14:26] VITALS: BP 113/69
[2018-05-11] MEDS ORDERED: WARFARIN 3 MG TABLET PO-COUM SCH (18:00)
[2018-05-11] MEDS: POTASSIUM CHLORIDE 20 MEQ TAB.ER.PRT PO SCH (18:54)
[2018-05-11 19:25] VITALS: BP 166/71
[2018-05-11] MEDS: ATORVASTATIN 40 MG TABLET PO SCH (20:06)
[2018-05-11] MEDS: OMEPRAZOLE 20 MG CAPSULE.DR PO SCH (20:06)
[2018-05-12 01:18] VITALS: BP 154/68
[2018-05-12] MEDS: SODIUM CHLORIDE 0.9% 1,000 ML IV SCH (04:30)
[2018-05-12 05:26] LABS: ALBUMIN 2.9 g/dL (3.4-5.0); ANION GAP 7 mmol/L (5-15); CALCIUM 8.5 mg/dL (8.5-10.1); CHLORIDE 104 mmol/L (98-107); CREATININE 1.72 mg/dL (0.7-1.3)
[2018-05-12] MEDS: METOPROLOL SUCCINATE 50 MG TAB.ER.24H PO SCH (05:35)
[2018-05-12 05:36] VITALS: BP 154/68
[2018-05-12 05:37] LABS: INTERNATIONAL NORMALIZED RATIO 2.46 (0.93-1.1); PROTHROMBIN TIME 25.1 Seconds (9.6-11.5)
[2018-05-12 06:48] VITALS: BP 118/67
[2018-05-12] MEDS ORDERED: POTASSIUM CHLORIDE 20 MEQ TAB.ER.PRT PO SCH (08:00)
[2018-05-12] MEDS: POTASSIUM CHLORIDE 20 MEQ TAB.ER.PRT PO SCH (08:32)
[2018-05-12] MEDS: FEBUXOSTAT 40 MG TABLET PO SCH (08:32)
[2018-05-12] MEDS: POLYETHYLENE GLYCOL 17 GM PACKET PO SCH (08:32)
[2018-05-12] MEDS: TAMSULOSIN 0.4 MG CAP.ER.24H PO SCH (08:32)
[2018-05-12] MEDS: SODIUM BICARBONATE 650 MG TABLET PO SCH (08:32)
[2018-05-12] MEDS ORDERED: POTA20TA89 PO (08:38)
[2018-05-12] MEDS ORDERED: FURO-92 PO (08:38)
[2018-05-12] MEDS ORDERED: POLY17PO5 PO (08:38)
== END 2018-05-12 12:45 | disposition home health service (06) | DRG 551 ==
LOC: ED 01:51 → EDIP 03:52 → 4WST 04:31 → DCLOUNGE 05-12 11:55
PROVIDERS: ADMIT Hospitalist; ATTEND Hospitalist
DX: M48.061 Spinal stenosis, lumbar region without neurogenic claudication (principal); E43 Unspecified severe protein-calorie malnutrition; N17.0 Acute kidney failure with tubular necrosis; I13.0 Hypertensive heart and chronic kidney disease with heart failure and stage 1 through stage 4 chronic kidney disease, or unspecified chronic kidney disease; D68.69 Other thrombophilia; I47.2 Ventricular tachycardia; E78.5 Hyperlipidemia, unspecified; E86.0 Dehydration; E87.6 Hypokalemia; F41.9 Anxiety disorder, unspecified; G89.29 Other chronic pain; I48.2 Chronic atrial fibrillation; I50.9 Heart failure, unspecified; K21.9 Gastro-esophageal reflux disease without esophagitis; K59.00 Constipation, unspecified; N18.3 Chronic kidney disease, stage 3 (moderate); N26.1 Atrophy of kidney (terminal); N28.89 Other specified disorders of kidney and ureter; E66.01 Morbid (severe) obesity due to excess calories; M10.9 Gout, unspecified; M19.90 Unspecified osteoarthritis, unspecified site; R33.9 Retention of urine, unspecified; Z79.899 Other long term (current) drug therapy; Z79.01 Long term (current) use of anticoagulants; Z87.442 Personal history of urinary calculi; Z88.0 Allergy status to penicillin; Z90.49 Acquired absence of other specified parts of digestive tract; Z68.35 Body mass index [BMI] 35.0-35.9, adult
CPT/HCPCS: 36415; 72131; 74176; 76770; 80048; 80053; 81001; 81003; 82040; 83690; 83735; 84100; 84484; 85025; 85610; 93005; 93306; 99285; J3480; J7030; J7050

== ENCOUNTER 2018-05-12 21:57 | Emergency (ER) | payer MEDICARE, MEDICAID ==
[~2018-05-12] VITALS: Ht 182.9 cm; Wt 113.6 kg
[~2018-05-12 21:57] MED LIST changes: +FURO-92 PO; +POLY17PO5 PO; +POTA20TA89 PO
[2018-05-12 21:59] VITALS: BP 135/74
== END 2018-05-12 22:45 | disposition home or self-care (01) ==
LOC: ED 22:39
DX: Z46.6 Encounter for fitting and adjustment of urinary device (principal); K21.9 Gastro-esophageal reflux disease without esophagitis; I48.91 Unspecified atrial fibrillation; I11.0 Hypertensive heart disease with heart failure; I50.9 Heart failure, unspecified; E66.01 Morbid (severe) obesity due to excess calories; Z68.34 Body mass index [BMI] 34.0-34.9, adult; Z79.01 Long term (current) use of anticoagulants
CPT/HCPCS: 99284

== ENCOUNTER 2018-05-21 21:41 | Emergency (ER) | payer MEDICARE, MEDICAID ==
[~2018-05-21] VITALS: Ht 182.9 cm; Wt 100.0 kg
[~2018-05-21 21:41] MED LIST changes: -BENA40TA2 PO; +BENA40TA3 PO
[2018-05-21 21:46] VITALS: BP 116/64
== END 2018-05-21 22:48 | disposition home or self-care (01) ==
LOC: ED 21:55
DX: T83.091A Other mechanical complication of indwelling urethral catheter, initial encounter (principal); Y84.6 Urinary catheterization as the cause of abnormal reaction of the patient, or of later complication, without mention of misadventure at the time of the procedure; Y92.89 Other specified places as the place of occurrence of the external cause; I48.91 Unspecified atrial fibrillation; I11.0 Hypertensive heart disease with heart failure; I50.9 Heart failure, unspecified; Z46.6 Encounter for fitting and adjustment of urinary device
CPT/HCPCS: 99281

== ENCOUNTER → 2018-06-26 | Outpatient (CLI) | payer MEDICARE, MEDICAID ==
[~2018-06-26] MED LIST changes: -AMLO5TAB2 PO; +AMLO5TAB7 PO; +FURO-93 PO; +MIRT15TA4 PO
[2018-06-26 12:46] LABS: CHLORIDE 105 mmol/L (98-107)
[2018-06-26 12:53] LABS: ALANINE AMINOTRANSFERASE 29 U/L (12-78); ALBUMIN 3.7 g/dL (3.4-5.0); ALKALINE PHOSPHATASE 100 U/L (45-117); ANION GAP 9 mmol/L (5-15); BILIRUBIN,TOTAL 1.3 mg/dL (0.2-1.0); CALCIUM 8.7 mg/dL (8.5-10.1); CHOL/HDL RATIO 4.4; CHOLESTEROL, TOTAL 136 mg/dL (140-239); CREATININE 1.36 mg/dL (0.7-1.3); HDL CHOL % 23 % (26-37); HDL CHOLESTEROL (DIRECT) 31 mg/dL (40-60); LDL CHOLESTEROL,CALCULATED 69 mg/dL (54-169); LDL/HDL RATIO 2.2 (0.5-3.0); TOTAL PROTEIN 7.8 g/dL (6.4-8.2); TRIGLYCERIDES 178 mg/dL (50-200); VLDL CHOLESTEROL 36 mg/dL (0-25)
== END | disposition home or self-care (01) ==
LOC: CFH 09:39
PROVIDERS: ATTEND Internal Medicine Cardiovascular Disease
DX: I11.0 Hypertensive heart disease with heart failure (principal); I50.9 Heart failure, unspecified; I48.2 Chronic atrial fibrillation; I42.9 Cardiomyopathy, unspecified; Z88.0 Allergy status to penicillin
CPT/HCPCS: 36415; 80053; 80061

== ENCOUNTER 2018-06-28 18:38 | Emergency (ER) | payer MEDICARE, MEDICAID ==
[~2018-06-28] VITALS: Ht 175.3 cm; Wt 110.0 kg
[~2018-06-28 18:38] MED LIST changes: -FURO-93 PO; -MIRT15TA4 PO
[2018-06-28] MEDS ORDERED: ASPIRIN 81 MG TABLET CHEW PO ONE (19:00)
[2018-06-28] MEDS ORDERED: PLEASE ENTER HEIGHT AND WEIGHT MC SCH (19:00)
[2018-06-28] MEDS ORDERED: MIRT15TA4 PO (19:15)
[2018-06-28] MEDS ORDERED: WARF1TAB9 PO (19:15)
[2018-06-28] MEDS ORDERED: ASPIRIN 81 MG TABLET CHEW ONE (19:16)
[2018-06-28 19:20] LABS: BASOPHILS # (AUTO) 0.03 x10^3/uL (0-0.1); BASOPHILS % (AUTO) 1 % (0-1); EOSINOPHILS # (AUTO) 0.31 x10^3/uL (0-0.4); EOSINOPHILS % (AUTO) 6 % (1-7); LYMPHOCYTES # (AUTO) 0.85 x10^3/uL (1-3.4); LYMPHOCYTES % (AUTO) 15 % (22-44); MD NO; MEAN CORPUSCULAR HEMOGLOBIN 30.4 pg (27.5-34.5); MEAN CORPUSCULAR HGB CONC 33.4 g/dL (33.2-36.2); MEAN CORPUSCULAR VOLUME 91.1 fL (81-97); MEAN PLATELET VOLUME 8.2 fL (7.4-10.4); MONOCYTES % (AUTO) 12 % (2-9); NEUTROPHILS # (AUTO) 3.78 x10^3/uL (1.8-6.8); NEUTROPHILS % (AUTO) 67 % (42-75); PLATELET COUNT 187 x10^3/uL (130-400); RED BLOOD COUNT 4.53 x10^6/uL (4.38-5.82); RED CELL DISTRIBUTION WIDTH 15.7 % (9.4-14.8)
[2018-06-28 19:32] LABS: INTERNATIONAL NORMALIZED RATIO 1.36 (0.93-1.1); PROTHROMBIN TIME 13.9 Seconds (9.6-11.5)
[2018-06-28 19:33] LABS: ALANINE AMINOTRANSFERASE 31 U/L (12-78); ALBUMIN 3.3 g/dL (3.4-5.0); ANION GAP 5 mmol/L (5-15); CALCIUM 8.4 mg/dL (8.5-10.1); CHLORIDE 105 mmol/L (98-107); CREATININE 1.39 mg/dL (0.7-1.3)
[2018-06-28 19:37] LABS: ALKALINE PHOSPHATASE 111 U/L (45-117); BILIRUBIN,TOTAL 0.5 mg/dL (0.2-1.0); TOTAL PROTEIN 6.9 g/dL (6.4-8.2); TROPONIN I 0.021 ng/mL (0.000-0.045)
[2018-06-28] MEDS ORDERED: FUROSEMIDE 40 MG/4 ML IV ONE (20:00)
[2018-06-28] MEDS ORDERED: POTASSIUM CHLORIDE 20 MEQ TAB.ER.PRT PO ONE (20:00)
[2018-06-28 20:03] VITALS: BP 162/65
[2018-06-28] MEDS ORDERED: FUROSEMIDE 20 MG/2 ML ONE (20:17)
[2018-06-28] MEDS ORDERED: POTASSIUM CHLORIDE 20 MEQ TAB.ER.PRT ONE (20:17)
[2018-06-29] MEDS ORDERED: FURO-93 PO (22:36)
== END 2018-06-28 20:39 | disposition home or self-care (01) ==
LOC: ED 19:13
DX: I11.0 Hypertensive heart disease with heart failure (principal); I50.9 Heart failure, unspecified; K21.9 Gastro-esophageal reflux disease without esophagitis; E66.01 Morbid (severe) obesity due to excess calories; M10.9 Gout, unspecified; Z68.35 Body mass index [BMI] 35.0-35.9, adult
CPT/HCPCS: 36415; 71045; 80053; 83880; 84484; 85025; 85610; 93005; 96374; 99285; J1940

== ENCOUNTER 2018-08-02 19:18 | Emergency (ER) | payer MEDICARE, MEDICAID ==
[~2018-08-02] VITALS: Ht 185.4 cm; Wt 122.3 kg
[~2018-08-02 19:18] MED LIST changes: +FURO-93 PO; +HYDR-3343 PO; +MIRT15TA4 PO
[2018-08-02 20:00] LABS: BASOPHILS % (AUTO) 2 % (0-1); EOSINOPHILS # (AUTO) 0.14 x10^3/uL (0-0.4); EOSINOPHILS % (AUTO) 1 % (1-7); LYMPHOCYTES # (AUTO) 0.72 x10^3/uL (1-3.4); LYMPHOCYTES % (AUTO) 7 % (22-44); MD NO; MEAN CORPUSCULAR HEMOGLOBIN 29.6 pg (27.5-34.5); MEAN CORPUSCULAR HGB CONC 32.9 g/dL (33.2-36.2); MEAN PLATELET VOLUME 8.2 fL (7.4-10.4); MONOCYTES # (AUTO) 0.89 x10^3/uL (0.2-0.8); MONOCYTES % (AUTO) 8 % (2-9); NEUTROPHILS # (AUTO) 8.63 x10^3/uL (1.8-6.8); NEUTROPHILS % (AUTO) 82 % (42-75); PLATELET COUNT 176 x10^3/uL (130-400); RED BLOOD COUNT 5.14 x10^6/uL (4.38-5.82); RED CELL DISTRIBUTION WIDTH 14.5 % (9.4-14.8)
[2018-08-02 20:12] LABS: ALANINE AMINOTRANSFERASE 23 U/L (12-78); ALBUMIN 3.7 g/dL (3.4-5.0); ANION GAP 9 mmol/L (5-15); CALCIUM 8.6 mg/dL (8.5-10.1); CHLORIDE 105 mmol/L (98-107); CREATININE 1.51 mg/dL (0.7-1.3)
[2018-08-02 20:14] LABS: ALKALINE PHOSPHATASE 108 U/L (45-117); TOTAL PROTEIN 8.1 g/dL (6.4-8.2)
[2018-08-02 20:23] LABS: INTERNATIONAL NORMALIZED RATIO 2.26 (0.93-1.1); PROTHROMBIN TIME 22.9 Seconds (9.6-11.5)
[2018-08-02 21:03] LABS: MICROSCOPIC INDICATED
[2018-08-02 21:04] LABS: CULTURE INDICATED? YES
[2018-08-02 22:43] VITALS: BP 174/92
[2018-08-08] MEDS ORDERED: CEFD300C37 PO (00:55)
[2018-08-08] MEDS ORDERED: LISI-167 PO (00:55)
[2018-08-09] MEDS ORDERED: METO25TA91 PO (10:14)
== END 2018-08-02 22:45 | disposition home or self-care (01) ==
LOC: ED 21:14
DX: N30.00 Acute cystitis without hematuria (principal); I10 Essential (primary) hypertension; Z76.0 Encounter for issue of repeat prescription; M19.90 Unspecified osteoarthritis, unspecified site; I48.91 Unspecified atrial fibrillation; K21.9 Gastro-esophageal reflux disease without esophagitis
CPT/HCPCS: 36415; 80053; 81001; 85025; 85610; 87077; 87086; 87186; 99284

== ENCOUNTER 2018-08-19 23:25 | Emergency (ER) | payer MEDICARE, MEDICAID ==
[~2018-08-19] VITALS: Ht 185.4 cm; Wt 123.8 kg
[~2018-08-19 23:25] MED LIST changes: +LISI-167 PO
[2018-08-20] MEDS ORDERED: SODIUM CHLORIDE FLUSH 10ML SYR IVF ONE
[2018-08-20 00:10] LABS: BASOPHILS # (AUTO) 0.02 x10^3/uL (0-0.1); BASOPHILS % (AUTO) 0 % (0-1); EOSINOPHILS # (AUTO) 0.28 x10^3/uL (0-0.4); EOSINOPHILS % (AUTO) 5 % (1-7); LYMPHOCYTES # (AUTO) 1.08 x10^3/uL (1-3.4); LYMPHOCYTES % (AUTO) 19 % (22-44); MD NO; MEAN CORPUSCULAR HEMOGLOBIN 29.9 pg (27.5-34.5); MEAN CORPUSCULAR HGB CONC 33.2 g/dL (33.2-36.2); MEAN PLATELET VOLUME 8.1 fL (7.4-10.4); MONOCYTES # (AUTO) 0.65 x10^3/uL (0.2-0.8); MONOCYTES % (AUTO) 11 % (2-9); NEUTROPHILS # (AUTO) 3.79 x10^3/uL (1.8-6.8); NEUTROPHILS % (AUTO) 65 % (42-75); PLATELET COUNT 230 x10^3/uL (130-400); RED BLOOD COUNT 4.65 x10^6/uL (4.38-5.82); RED CELL DISTRIBUTION WIDTH 14.2 % (9.4-14.8)
[2018-08-20 00:20] LABS: INTERNATIONAL NORMALIZED RATIO 2.82 (0.93-1.1); PROTHROMBIN TIME 28.5 Seconds (9.6-11.5)
[2018-08-20 00:22] LABS: ALANINE AMINOTRANSFERASE 23 U/L (12-78); ALBUMIN 3.4 g/dL (3.4-5.0); ANION GAP 7 mmol/L (5-15); CALCIUM 8.2 mg/dL (8.5-10.1); CHLORIDE 108 mmol/L (98-107); CREATININE 1.39 mg/dL (0.7-1.3)
[2018-08-20 00:27] LABS: ALKALINE PHOSPHATASE 103 U/L (45-117); BILIRUBIN,TOTAL 0.4 mg/dL (0.2-1.0); TOTAL PROTEIN 7.1 g/dL (6.4-8.2); TROPONIN I < 0.015 ng/mL (0.000-0.045)
[2018-08-20 00:49] VITALS: BP 160/52
[2018-08-20] MEDS ORDERED: FUROSEMIDE 40 MG/4 ML ONE (00:53)
[2018-08-20] MEDS ORDERED: FUROSEMIDE 40 MG/4 ML IV ONE (01:00)
== END 2018-08-20 01:26 | disposition home or self-care (01) ==
LOC: ED 23:53
DX: R06.00 Dyspnea, unspecified (principal); I50.22 Chronic systolic (congestive) heart failure; K21.9 Gastro-esophageal reflux disease without esophagitis; I11.0 Hypertensive heart disease with heart failure; I48.91 Unspecified atrial fibrillation; Z87.891 Personal history of nicotine dependence
CPT/HCPCS: 36415; 71045; 80053; 83880; 84484; 85025; 85610; 85730; 93005; 96374; 99285; J1940

== ENCOUNTER 2018-08-24 02:26 | Emergency (ER) | payer MEDICARE, MEDICAID ==
[~2018-08-24] VITALS: Ht 182.9 cm; Wt 100.0 kg
[2018-08-24 03:01] LABS: BASOPHILS # (AUTO) 0.05 x10^3/uL (0-0.1); BASOPHILS % (AUTO) 1 % (0-1); EOSINOPHILS # (AUTO) 0.33 x10^3/uL (0-0.4); EOSINOPHILS % (AUTO) 5 % (1-7); LYMPHOCYTES # (AUTO) 1.02 x10^3/uL (1-3.4); LYMPHOCYTES % (AUTO) 16 % (22-44); MD NO; MEAN CORPUSCULAR HEMOGLOBIN 29.2 pg (27.5-34.5); MEAN CORPUSCULAR HGB CONC 32.5 g/dL (33.2-36.2); MEAN CORPUSCULAR VOLUME 89.8 fL (81-97); MEAN PLATELET VOLUME 8.1 fL (7.4-10.4); MONOCYTES # (AUTO) 0.57 x10^3/uL (0.2-0.8); MONOCYTES % (AUTO) 9 % (2-9); NEUTROPHILS # (AUTO) 4.29 x10^3/uL (1.8-6.8); NEUTROPHILS % (AUTO) 69 % (42-75); PLATELET COUNT 214 x10^3/uL (130-400); RED BLOOD COUNT 4.91 x10^6/uL (4.38-5.82); RED CELL DISTRIBUTION WIDTH 14.1 % (9.4-14.8)
[2018-08-24 03:10] LABS: INTERNATIONAL NORMALIZED RATIO 3.16 (0.93-1.1); PROTHROMBIN TIME 32.1 Seconds (9.6-11.5)
[2018-08-24 03:12] LABS: ALBUMIN 3.6 g/dL (3.4-5.0); ANION GAP 9 mmol/L (5-15); CALCIUM 8.5 mg/dL (8.5-10.1); CHLORIDE 109 mmol/L (98-107); CREATININE 1.38 mg/dL (0.7-1.3)
[2018-08-24 03:16] LABS: TROPONIN I < 0.015 ng/mL (0.000-0.045)
[2018-08-24] MEDS ORDERED: FUROSEMIDE 40 MG TABLET ONE (03:29)
[2018-08-24] MEDS ORDERED: FUROSEMIDE 20 MG TABLET ONE (03:29)
[2018-08-24] MEDS ORDERED: FUROSEMIDE 40 MG TABLET PO ONE (03:30)
[2018-08-24 03:39] VITALS: BP 142/83
== END 2018-08-24 04:55 | disposition home or self-care (01) ==
LOC: ED 02:42
DX: I11.0 Hypertensive heart disease with heart failure (principal); R05 Cough; Z87.891 Personal history of nicotine dependence; I50.9 Heart failure, unspecified
CPT/HCPCS: 36415; 71046; 80048; 82040; 83880; 84484; 85025; 85610; 85730; 93005; 99285

== ENCOUNTER 2018-09-15 20:43 | Inpatient (IN) | payer MEDICARE, MEDICAID ==
[~2018-09-15] VITALS: Ht 182.9 cm; Wt 119.0 kg
[~2018-09-15 20:43] MED LIST changes: +AMLO-150 PO; -AMLO5TAB7 PO; -ASPI-621 PO; +ASPI81TA45 PO
[2018-09-15] MEDS ORDERED: FURO80TA3 PO (21:02)
[2018-09-15] MEDS ORDERED: METO50TA82 PO (21:07)
[2018-09-15] MEDS ORDERED: MIRT15TA4 PO (21:07)
[2018-09-15 21:50] LABS: BASOPHILS # (AUTO) 0.03 x10^3/uL (0-0.1); BASOPHILS % (AUTO) 1 % (0-1); EOSINOPHILS # (AUTO) 0.35 x10^3/uL (0-0.4); EOSINOPHILS % (AUTO) 5 % (1-7); LYMPHOCYTES # (AUTO) 0.98 x10^3/uL (1-3.4); LYMPHOCYTES % (AUTO) 14 % (22-44); MD NO; MEAN CORPUSCULAR HEMOGLOBIN 29.4 pg (27.5-34.5); MEAN CORPUSCULAR HGB CONC 32.8 g/dL (33.2-36.2); MEAN CORPUSCULAR VOLUME 89.6 fL (81-97); MEAN PLATELET VOLUME 7.7 fL (7.4-10.4); MONOCYTES # (AUTO) 0.67 x10^3/uL (0.2-0.8); MONOCYTES % (AUTO) 9 % (2-9); NEUTROPHILS % (AUTO) 71 % (42-75); PLATELET COUNT 210 x10^3/uL (130-400); RED CELL DISTRIBUTION WIDTH 14.2 % (9.4-14.8)
[2018-09-15] MEDS ORDERED: ONDANSETRON ODT 4 MG ONE (21:59)
[2018-09-15] MEDS ORDERED: ONDANSETRON ODT 4 MG PO ONE (22:00)
[2018-09-15 22:01] LABS: ANION GAP 8 mmol/L (5-15); CALCIUM 8.4 mg/dL (8.5-10.1); CHLORIDE 109 mmol/L (98-107); CREATININE 1.44 mg/dL (0.7-1.3)
[2018-09-15] MEDS ORDERED: AMIODARONE 150 MG in DEXTROSE 5% 100 ML IV ONE (22:19)
[2018-09-15] MEDS ORDERED: AMIODARONE 900 MG in DEXTROSE 5% 482 ML IV PRN (22:19)
[2018-09-15] MEDS ORDERED: FILTER 0.22 MICRON IV ONE (22:30)
[2018-09-15 22:38] LABS: TROPONIN I < 0.015 ng/mL (0.000-0.045)
[2018-09-16] VITALS (14 sets, daily range): BP systolic 121–165; BP diastolic 52–89
[2018-09-16] MEDS ORDERED: hydrALAzine 20 MG/ML, 1ML IVPush PRN
[2018-09-16] MEDS ORDERED: ONDANSETRON 2MG/ML, 2ML IVPush PRN
[2018-09-16] MEDS ORDERED: AMIODARONE 900 MG in DEXTROSE 5% 482 ML IV PRN
[2018-09-16] MEDS ORDERED: AMIODARONE 150 MG in DEXTROSE 5% 100 ML IV ONE
[2018-09-16] MEDS ORDERED: DOCUSATE 100 MG CAPSULE PO PRN
[2018-09-16] MEDS ORDERED: HYDROcodone/APAP 5/325 TABLET PO PRN
[2018-09-16] MEDS ORDERED: POTASSIUM CHLORIDE 20 MEQ TAB.ER.PRT PO ONE (00:30)
[2018-09-16] MEDS ORDERED: FILTER 0.22 MICRON IV PRN (00:30)
[2018-09-16] MEDS: ATORVASTATIN 40 MG TABLET PO SCH ×2 (01:32→21:25)
[2018-09-16 04:58] LABS: BASOPHILS # (AUTO) 0.06 x10^3/uL (0-0.1); BASOPHILS % (AUTO) 1 % (0-1); EOSINOPHILS # (AUTO) 0.26 x10^3/uL (0-0.4); EOSINOPHILS % (AUTO) 4 % (1-7); LYMPHOCYTES # (AUTO) 0.71 x10^3/uL (1-3.4); LYMPHOCYTES % (AUTO) 12 % (22-44); MD NO; MEAN CORPUSCULAR HEMOGLOBIN 29.4 pg (27.5-34.5); MEAN CORPUSCULAR HGB CONC 32.8 g/dL (33.2-36.2); MEAN CORPUSCULAR VOLUME 89.8 fL (81-97); MEAN PLATELET VOLUME 7.8 fL (7.4-10.4); MONOCYTES # (AUTO) 0.65 x10^3/uL (0.2-0.8); MONOCYTES % (AUTO) 11 % (2-9); NEUTROPHILS # (AUTO) 4.22 x10^3/uL (1.8-6.8); NEUTROPHILS % (AUTO) 72 % (42-75); PLATELET COUNT 182 x10^3/uL (130-400); RED BLOOD COUNT 4.64 x10^6/uL (4.38-5.82); RED CELL DISTRIBUTION WIDTH 14.6 % (9.4-14.8)
[2018-09-16 05:07] LABS: INTERNATIONAL NORMALIZED RATIO 2.77 (0.93-1.1); PROTHROMBIN TIME 28.2 Seconds (9.6-11.5)
[2018-09-16 05:12] LABS: ANION GAP 10 mmol/L (5-15); CALCIUM 8.3 mg/dL (8.5-10.1); CHLORIDE 110 mmol/L (98-107)
[2018-09-16 05:17] LABS: TROPONIN I < 0.015 ng/mL (0.000-0.045)
[2018-09-16 05:25] LABS: CHOL/HDL RATIO 4.1; CHOLESTEROL, TOTAL 112 mg/dL (140-239); CREATININE 1.34 mg/dL (0.7-1.3); HDL CHOL % 24 % (26-37); HDL CHOLESTEROL (DIRECT) 27 mg/dL (40-60); LDL CHOLESTEROL,CALCULATED 61 mg/dL (54-169); LDL/HDL RATIO 2.3 (0.5-3.0); TRIGLYCERIDES 119 mg/dL (50-200); VLDL CHOLESTEROL 24 mg/dL (0-25)
[2018-09-16] MEDS: METOPROLOL TARTRATE 50 MG TABLET PO SCH ×2 (05:32→18:02)
[2018-09-16] MEDS ORDERED: FUROSEMIDE 40 MG/4 ML IV SCH (07:30)
[2018-09-16 07:53] LABS: TROPONIN I 0.015 ng/mL (0.000-0.045)
[2018-09-16] MEDS: LISINOPRIL 20 MG TABLET PO SCH (08:30)
[2018-09-16] MEDS: TAMSULOSIN 0.4 MG CAP.ER.24H PO SCH (08:30)
[2018-09-16] MEDS: POTASSIUM CHLORIDE 20 MEQ TAB.ER.PRT PO SCH (08:30)
[2018-09-16] MEDS: FEBUXOSTAT 40 MG TABLET PO SCH (08:30)
[2018-09-16] MEDS: MIRTAZAPINE 15 MG TABLET PO SCH (08:32)
[2018-09-16] MEDS: GUAIFENESIN/COD200MG-20MG/10ML LIQUID PO PRN (09:57)
[2018-09-16] MEDS: FUROSEMIDE 20 MG/2 ML IV SCH (16:21)
[2018-09-16] MEDS: WARFARIN 3 MG TABLET PO-COUM SCH (18:01)
[2018-09-17] VITALS (9 sets, daily range): BP systolic 113–186; BP diastolic 67–93
[2018-09-17] MEDS: METOPROLOL TARTRATE 50 MG TABLET PO SCH ×2 (05:12→17:39)
[2018-09-17] MEDS: FUROSEMIDE 20 MG/2 ML IV SCH ×2 (08:12→16:17)
[2018-09-17] MEDS: FEBUXOSTAT 40 MG TABLET PO SCH (08:20)
[2018-09-17] MEDS: LISINOPRIL 20 MG TABLET PO SCH (08:24)
[2018-09-17] MEDS: MIRTAZAPINE 15 MG TABLET PO SCH (08:24)
[2018-09-17] MEDS: POTASSIUM CHLORIDE 20 MEQ TAB.ER.PRT PO SCH (08:24)
[2018-09-17] MEDS: TAMSULOSIN 0.4 MG CAP.ER.24H PO SCH (08:25)
[2018-09-17] MEDS ORDERED: FUROSEMIDE 20 MG/2 ML IV ONE ×2 (08:30→17:00)
[2018-09-17] MEDS: GUAIFENESIN/COD200MG-20MG/10ML LIQUID PO PRN (08:35)
[2018-09-17] MEDS ORDERED: BISACODYL 10 MG SUPP PR PRN (16:00)
[2018-09-17] MEDS: ACETAMINOPHEN 325 MG TABLET PO PRN (16:20)
[2018-09-17] MEDS: POLYETHYLENE GLYCOL 17 GM PACKET PO SCH (16:20)
[2018-09-17 18:21] LABS: INTERNATIONAL NORMALIZED RATIO 2.31 (0.93-1.1); PROTHROMBIN TIME 23.7 Seconds (9.6-11.5)
[2018-09-17] MEDS: WARFARIN 3 MG TABLET PO-COUM SCH (18:29)
[2018-09-17] MEDS: ATORVASTATIN 40 MG TABLET PO SCH (20:54)
[2018-09-17] MEDS: SENNA/DOCUSATE TABLET PO SCH (20:54)
[2018-09-18] MEDS: GUAIFENESIN/COD200MG-20MG/10ML LIQUID PO PRN ×4 (00:35→21:17)
[2018-09-18 01:34] VITALS: BP 143/74
[2018-09-18 05:36] VITALS: BP 166/83
[2018-09-18] MEDS: METOPROLOL TARTRATE 50 MG TABLET PO SCH ×2 (05:37→18:08)
[2018-09-18 06:13] LABS: ALBUMIN 3.4 g/dL (3.4-5.0); ANION GAP 6 mmol/L (5-15); CHLORIDE 110 mmol/L (98-107)
[2018-09-18 06:22] LABS: CALCIUM 8.6 mg/dL (8.5-10.1); CREATININE 1.46 mg/dL (0.7-1.3)
[2018-09-18 07:05] VITALS: BP 136/85
[2018-09-18] MEDS: FUROSEMIDE 20 MG/2 ML IV SCH (08:11)
[2018-09-18] MEDS: TAMSULOSIN 0.4 MG CAP.ER.24H PO SCH (08:11)
[2018-09-18] MEDS: FEBUXOSTAT 40 MG TABLET PO SCH (08:11)
[2018-09-18] MEDS: POTASSIUM CHLORIDE 20 MEQ TAB.ER.PRT PO SCH (08:11)
[2018-09-18] MEDS: MIRTAZAPINE 15 MG TABLET PO SCH (08:12)
[2018-09-18] MEDS: POLYETHYLENE GLYCOL 17 GM PACKET PO SCH (08:12)
[2018-09-18] MEDS: LISINOPRIL 20 MG TABLET PO SCH (08:12)
[2018-09-18 08:19] LABS: INTERNATIONAL NORMALIZED RATIO 2.17 (0.93-1.1); PROTHROMBIN TIME 22.3 Seconds (9.6-11.5)
[2018-09-18] MEDS: ACETAMINOPHEN 325 MG TABLET PO PRN ×2 (12:12→18:37)
[2018-09-18 12:45] VITALS: BP 163/87
[2018-09-18 16:15] VITALS: BP 152/80
[2018-09-18] MEDS ORDERED: METO-93 PO (16:27)
[2018-09-18] MEDS ORDERED: FLUT16SP INH (16:27)
[2018-09-18 18:07] VITALS: BP 131/74
[2018-09-18] MEDS: WARFARIN 3 MG TABLET PO-COUM SCH (18:08)
[2018-09-18] MEDS: FUROSEMIDE 40 MG TABLET PO SCH (18:08)
[2018-09-18] MEDS: FLUTICASONE NASAL SPRAY 16GM NAS SCH (18:36)
[2018-09-18] MEDS: SENNA/DOCUSATE TABLET PO SCH (20:05)
[2018-09-18] MEDS: ATORVASTATIN 40 MG TABLET PO SCH (20:05)
[2018-09-19 00:17] VITALS: BP 135/72
[2018-09-19 05:08] LABS: CHLORIDE 111 mmol/L (98-107)
[2018-09-19 05:25] LABS: ALBUMIN 3.3 g/dL (3.4-5.0); ANION GAP 8 mmol/L (5-15); CALCIUM 8.6 mg/dL (8.5-10.1); CREATININE 1.38 mg/dL (0.7-1.3)
[2018-09-19] MEDS: METOPROLOL TARTRATE 50 MG TABLET PO SCH ×2 (05:56→17:18)
[2018-09-19 07:19] VITALS: BP 143/80
[2018-09-19] MEDS: MIRTAZAPINE 15 MG TABLET PO SCH (09:12)
[2018-09-19] MEDS: FEBUXOSTAT 40 MG TABLET PO SCH (09:12)
[2018-09-19] MEDS: TAMSULOSIN 0.4 MG CAP.ER.24H PO SCH (09:12)
[2018-09-19] MEDS: POTASSIUM CHLORIDE 20 MEQ TAB.ER.PRT PO SCH (09:12)
[2018-09-19] MEDS: FUROSEMIDE 80 MG TABLET PO SCH (09:13)
[2018-09-19] MEDS: LISINOPRIL 20 MG TABLET PO SCH (09:13)
[2018-09-19] MEDS: POLYETHYLENE GLYCOL 17 GM PACKET PO SCH (09:15)
[2018-09-19 13:44] VITALS: BP 166/74
[2018-09-19] MEDS: ACETAMINOPHEN 325 MG TABLET PO PRN (15:44)
[2018-09-19] MEDS: FUROSEMIDE 40 MG TABLET PO SCH (15:44)
[2018-09-19 17:40] LABS: INTERNATIONAL NORMALIZED RATIO 1.95 (0.93-1.1); PROTHROMBIN TIME 20.1 Seconds (9.6-11.5)
[2018-09-19] MEDS ORDERED: WARFARIN 3 MG TABLET PO-COUM SCH (18:00)
[2018-09-19] MEDS: GUAIFENESIN/COD200MG-20MG/10ML LIQUID PO PRN (20:15)
[2018-09-19] MEDS: FLUTICASONE NASAL SPRAY 16GM NAS SCH (20:15)
[2018-09-19] MEDS: ATORVASTATIN 40 MG TABLET PO SCH (20:15)
[2018-09-19] MEDS: SENNA/DOCUSATE TABLET PO SCH (20:15)
[2018-09-19 21:04] VITALS: BP 148/71
[2018-09-20 00:53] VITALS: BP 136/73
[2018-09-20] MEDS: METOPROLOL TARTRATE 50 MG TABLET PO SCH (05:34)
[2018-09-20 06:59] VITALS: BP 136/82
[2018-09-20 07:41] LABS: INTERNATIONAL NORMALIZED RATIO 1.86 (0.93-1.1); PROTHROMBIN TIME 19.3 Seconds (9.6-11.5)
[2018-09-20 07:43] LABS: ALBUMIN 3.3 g/dL (3.4-5.0); ANION GAP 7 mmol/L (5-15); CALCIUM 8.7 mg/dL (8.5-10.1); CHLORIDE 112 mmol/L (98-107); CREATININE 1.57 mg/dL (0.7-1.3)
[2018-09-20] MEDS: FEBUXOSTAT 40 MG TABLET PO SCH (09:00)
[2018-09-20] MEDS: POTASSIUM CHLORIDE 20 MEQ TAB.ER.PRT PO SCH (09:29)
[2018-09-20] MEDS: FLUTICASONE NASAL SPRAY 16GM NAS SCH (09:29)
[2018-09-20] MEDS: LISINOPRIL 20 MG TABLET PO SCH (09:29)
[2018-09-20] MEDS: TAMSULOSIN 0.4 MG CAP.ER.24H PO SCH (09:29)
[2018-09-20] MEDS: POLYETHYLENE GLYCOL 17 GM PACKET PO SCH (09:29)
[2018-09-20] MEDS: FUROSEMIDE 80 MG TABLET PO SCH (09:30)
[2018-09-20] MEDS: MIRTAZAPINE 15 MG TABLET PO SCH (09:30)
[2018-09-20] MEDS ORDERED: FURO40TA6 PO (11:29)
[2018-09-20] MEDS ORDERED: HYDR-3343 PO (11:29)
[2018-09-20] MEDS ORDERED: SENN1TAB8 PO (11:29)
[2018-09-20 13:29] VITALS: BP 157/73
== END 2018-09-20 15:50 | disposition home or self-care (01) | DRG 291 ==
LOC: ED 21:32 → EDIP 22:26 → 5SO 09-16 00:13
PROVIDERS: ADMIT Internal Medicine; ATTEND Internal Medicine
DX: I13.0 Hypertensive heart and chronic kidney disease with heart failure and stage 1 through stage 4 chronic kidney disease, or unspecified chronic kidney disease (principal); I50.33 Acute on chronic diastolic (congestive) heart failure; D68.69 Other thrombophilia; I47.2 Ventricular tachycardia; I48.2 Chronic atrial fibrillation; E66.9 Obesity, unspecified; E78.5 Hyperlipidemia, unspecified; F41.1 Generalized anxiety disorder; G47.33 Obstructive sleep apnea (adult) (pediatric); I08.0 Rheumatic disorders of both mitral and aortic valves; I42.9 Cardiomyopathy, unspecified; I87.2 Venous insufficiency (chronic) (peripheral); I16.0 Hypertensive urgency; K21.9 Gastro-esophageal reflux disease without esophagitis; N18.3 Chronic kidney disease, stage 3 (moderate); R00.1 Bradycardia, unspecified; G47.00 Insomnia, unspecified; K59.00 Constipation, unspecified; N40.0 Benign prostatic hyperplasia without lower urinary tract symptoms; Z68.35 Body mass index [BMI] 35.0-35.9, adult; Z23 Encounter for immunization; Z79.01 Long term (current) use of anticoagulants; Z83.3 Family history of diabetes mellitus; Z87.891 Personal history of nicotine dependence; Z84.1 Family history of disorders of kidney and ureter; Z71.3 Dietary counseling and surveillance; Z90.49 Acquired absence of other specified parts of digestive tract; Z88.0 Allergy status to penicillin
CPT/HCPCS: 36415; 71045; 80048; 80061; 80069; 83690; 83735; 83880; 84100; 84443; 84484; 84550; 85025; 85610; 90656; 93005; 93306; 96374; 99285; G0378; J1940; Q0162; J0282; J7060

== ENCOUNTER 2018-10-15 02:48 | Emergency (ER) | payer MEDICARE, MEDICAID ==
[~2018-10-15] VITALS: Ht 182.9 cm; Wt 122.0 kg
[~2018-10-15 02:48] MED LIST changes: +FLUT16SP INH; +FURO80TA3 PO; +METO50TA82 PO; +SENN1TAB8 PO
[2018-10-15 03:45] LABS: BASOPHILS # (AUTO) 0.01 x10^3/uL (0-0.1); BASOPHILS % (AUTO) 0 % (0-1); EOSINOPHILS # (AUTO) 0.26 x10^3/uL (0-0.4); EOSINOPHILS % (AUTO) 4 % (1-7); LYMPHOCYTES # (AUTO) 0.86 x10^3/uL (1-3.4); LYMPHOCYTES % (AUTO) 14 % (22-44); MD NO; MEAN CORPUSCULAR HEMOGLOBIN 29.3 pg (27.5-34.5); MEAN CORPUSCULAR HGB CONC 32.8 g/dL (33.2-36.2); MEAN CORPUSCULAR VOLUME 89.4 fL (81-97); MEAN PLATELET VOLUME 8.4 fL (7.4-10.4); MONOCYTES # (AUTO) 0.67 x10^3/uL (0.2-0.8); MONOCYTES % (AUTO) 11 % (2-9); NEUTROPHILS # (AUTO) 4.32 x10^3/uL (1.8-6.8); NEUTROPHILS % (AUTO) 71 % (42-75); PLATELET COUNT 170 x10^3/uL (130-400); RED BLOOD COUNT 4.94 x10^6/uL (4.38-5.82); RED CELL DISTRIBUTION WIDTH 14.9 % (9.4-14.8)
[2018-10-15 03:51] LABS: INTERNATIONAL NORMALIZED RATIO 2.17 (0.93-1.1); PROTHROMBIN TIME 22.3 Seconds (9.6-11.5)
[2018-10-15 03:53] LABS: ALANINE AMINOTRANSFERASE 23 U/L (12-78); ALBUMIN 3.8 g/dL (3.4-5.0); ANION GAP 5 mmol/L (5-15); CALCIUM 8.5 mg/dL (8.5-10.1); CHLORIDE 110 mmol/L (98-107); CREATININE 1.63 mg/dL (0.7-1.3)
[2018-10-15 03:56] LABS: ALKALINE PHOSPHATASE 98 U/L (45-117); BILIRUBIN,TOTAL 0.6 mg/dL (0.2-1.0); TOTAL PROTEIN 7.5 g/dL (6.4-8.2)
[2018-10-15 04:19] VITALS: BP 128/67
== END 2018-10-15 05:04 | disposition home or self-care (01) ==
LOC: ED 03:36
DX: K92.0 Hematemesis (principal); K92.2 Gastrointestinal hemorrhage, unspecified; K21.9 Gastro-esophageal reflux disease without esophagitis; F41.1 Generalized anxiety disorder; I48.91 Unspecified atrial fibrillation; M10.9 Gout, unspecified; I50.9 Heart failure, unspecified; I11.0 Hypertensive heart disease with heart failure
CPT/HCPCS: 36415; 71046; 80053; 85025; 85610; 99284

== ENCOUNTER → 2018-10-16 | Outpatient (CLI) | payer MEDICARE, MEDICAID ==
[2018-10-16 12:35] LABS: ALANINE AMINOTRANSFERASE 24 U/L (12-78); ALBUMIN 3.9 g/dL (3.4-5.0); ANION GAP 7 mmol/L (5-15); CALCIUM 8.6 mg/dL (8.5-10.1); CHLORIDE 107 mmol/L (98-107); CREATININE 2.13 mg/dL (0.7-1.3)
[2018-10-16 12:39] LABS: ALKALINE PHOSPHATASE 95 U/L (45-117); BILIRUBIN,TOTAL 0.5 mg/dL (0.2-1.0); TOTAL PROTEIN 7.9 g/dL (6.4-8.2)
== END | disposition home or self-care (01) ==
LOC: CFH 10:09
PROVIDERS: ATTEND Internal Medicine Cardiovascular Disease
DX: I10 Essential (primary) hypertension (principal); I48.2 Chronic atrial fibrillation
CPT/HCPCS: 36415; 80053; 83880

== ENCOUNTER → 2018-12-30 | Outpatient (CLI) | payer MEDICARE, MEDICAID ==
[~2018-12-30] MED LIST changes: -MIRT15TA6 PO; +MIRT15TA94 PO; +SENN-177 PO; -SENN1TAB8 PO
== END | disposition home or self-care (01) ==
LOC: CFH 13:48
PROVIDERS: ATTEND Urology
DX: N26.1 Atrophy of kidney (terminal) (principal); I51.7 Cardiomegaly; D49.519 Neoplasm of unspecified behavior of unspecified kidney
CPT/HCPCS: 74150

== ENCOUNTER 2019-04-01 15:46 | Emergency (ER) | payer MEDICARE, MEDICAID ==
[~2019-04-01] VITALS: Ht 182.9 cm; Wt 121.9 kg
[~2019-04-01 15:46] MED LIST changes: -FLUT16SP INH; +FLUT16SP24 INH
[2019-04-01 16:43] LABS: ALANINE AMINOTRANSFERASE 20 U/L (12-78); ALBUMIN 3.9 g/dL (3.4-5.0); ANION GAP 9 mmol/L (5-15); CALCIUM 8.5 mg/dL (8.5-10.1); CHLORIDE 108 mmol/L (98-107); CREATININE 2.03 mg/dL (0.7-1.3)
[2019-04-01 16:44] LABS: BASOPHILS # (AUTO) 0.05 x10^3/uL (0-0.1); BASOPHILS % (AUTO) 1 % (0-1); EOSINOPHILS # (AUTO) 0.33 x10^3/uL (0-0.4); EOSINOPHILS % (AUTO) 5 % (1-7); LYMPHOCYTES # (AUTO) 1.01 x10^3/uL (1-3.4); LYMPHOCYTES % (AUTO) 14 % (22-44); MD NO; MEAN CORPUSCULAR HEMOGLOBIN 30.8 pg (27.5-34.5); MEAN CORPUSCULAR HGB CONC 32.4 g/dL (33.2-36.2); MEAN PLATELET VOLUME 9.1 fL (7.4-10.4); MONOCYTES # (AUTO) 0.57 x10^3/uL (0.2-0.8); MONOCYTES % (AUTO) 8 % (2-9); NEUTROPHILS # (AUTO) 5.06 x10^3/uL (1.8-6.8); NEUTROPHILS % (AUTO) 72 % (42-75); PLATELET COUNT 183 x10^3/uL (130-400); RED BLOOD COUNT 4.82 x10^6/uL (4.38-5.82); RED CELL DISTRIBUTION WIDTH 15.7 % (9.4-14.8)
[2019-04-01 16:47] LABS: ALKALINE PHOSPHATASE 94 U/L (45-117); BILIRUBIN,TOTAL 0.4 mg/dL (0.2-1.0); TOTAL PROTEIN 7.9 g/dL (6.4-8.2); TROPONIN I 0.016 ng/mL (0.000-0.045)
--- NOTE | 2019-04-01 17:12 | NUR ---
TO ROOM FROM LOBBY. NAD.
--- NOTE | 2019-04-01 17:15 | NUR ---
NECK PAIN RADIATING TO CHEST SINCE YESTERDAY, HURTS TO BREATHE APPEARS WELL-VITALS STABLE ON ASSISTANT FOREMAN
[2019-04-01 17:33] LABS: INTERNATIONAL NORMALIZED RATIO 1.79 (0.93-1.1); PROTHROMBIN TIME 18.4 Seconds (9.6-11.5)
[2019-04-01 18:22] VITALS: BP 143/50
== END 2019-04-01 18:24 | disposition home or self-care (01) ==
LOC: ED 18:12
DX: R07.89 Other chest pain (principal); M19.90 Unspecified osteoarthritis, unspecified site; I48.91 Unspecified atrial fibrillation; I11.0 Hypertensive heart disease with heart failure; I50.9 Heart failure, unspecified; K21.9 Gastro-esophageal reflux disease without esophagitis; Z90.49 Acquired absence of other specified parts of digestive tract; Z88.0 Allergy status to penicillin; Z87.891 Personal history of nicotine dependence
CPT/HCPCS: 36415; 71046; 80053; 84484; 85025; 85610; 93005; 99284

== ENCOUNTER 2019-08-27 12:09 | Emergency (ER) | payer MEDICARE, MEDICAID ==
[~2019-08-27] VITALS: Ht 182.9 cm; Wt 122.3 kg
[~2019-08-27 12:09] MED LIST changes: +AMLO2.5T5 PO; +MIRT-34 PO; -MIRT15TA4 PO
[2019-08-27 12:39] VITALS: BP 133/73
--- NOTE | 2019-08-27 14:09 | NUR ---
BEEHIVE KILN CHARCOAL BURNER: PT TO ROOM FROM LOBBY, GAIT SLOW AND STEADY
--- NOTE | 2019-08-27 14:21 | NUR ---
PT HAD TOOTH PULLED THREE DAYS AGO HAS BEEN GETTING PAIN AND HAD BLEEDING SINCE THEN. PT SAW HIS DENTIST TODAY, THE DENTIST DID NOT DO ANYTHING ABOUT THE BLEEDING. PT HAS BEEN HOLDING COUMDAIN. ERMD IN TO EVAL PT. NO BLEEDING NOTED ON EXAM.
[2019-08-27 15:20] LABS: INTERNATIONAL NORMALIZED RATIO 3.78 (0.93-1.1); PROTHROMBIN TIME 37.7 Seconds (9.6-11.5)
--- NOTE | 2019-08-27 15:21 | NUR ---
INR PENDING, PT WITH NO NEEDS AT THIS TIME
--- NOTE | 2019-08-27 16:00 | NUR ---
EKG COMPLETED. ERMD IN TO UPDATE PT ON POC
== END 2019-08-27 16:44 | disposition home or self-care (01) ==
LOC: ED 16:05
DX: D68.32 Hemorrhagic disorder due to extrinsic circulating anticoagulants (principal); K06.8 Other specified disorders of gingiva and edentulous alveolar ridge; K21.9 Gastro-esophageal reflux disease without esophagitis; I48.91 Unspecified atrial fibrillation; I11.0 Hypertensive heart disease with heart failure; I50.9 Heart failure, unspecified; Z90.49 Acquired absence of other specified parts of digestive tract
CPT/HCPCS: 36415; 85610; 93005; 99284

== ENCOUNTER 2019-10-26 09:20 | Observation (INO) | payer MEDICARE, MEDICAID ==
[~2019-10-26] VITALS: Ht 182.9 cm; Wt 113.7 kg
--- NOTE | 2019-10-26 09:37 | NUR ---
triage completed with [facility] ichthyology teacher. ekg completed in triage.
--- NOTE | 2019-10-26 10:18 | NUR ---
PT HERE WITH C/O OF CHEST PAIN UNDER LEFT RIB/BREAST THAT RADIATES INTO LEFT BACK. PT STATES IT OCCURRED DURING AN ARGUMENT AND VOMITTING MAKES IT "FEEL BETTER." PT AAO X 4, NAD, ROOM AIR, DRESSED IN GOWN AND ATTACHED TO ALL MONITORS. PIV ESTABLISHED BY THIS RN AND LABS DRAWN. BRONC BREAKER ROBOT AT BEDSIDE BOTH THIS RN AND MD EXAM. SIDERAIL X [address], CALL LIGHT WITHIN REACH.
[2019-10-26 10:23] LABS: BASOPHILS # (AUTO) 0.03 x10^3/uL (0-0.1); BASOPHILS % (AUTO) 1 % (0-1); EOSINOPHILS # (AUTO) 0.33 x10^3/uL (0-0.4); EOSINOPHILS % (AUTO) 5 % (1-7); LYMPHOCYTES # (AUTO) 0.93 x10^3/uL (1-3.4); LYMPHOCYTES % (AUTO) 13 % (22-44); MD NO; MEAN CORPUSCULAR HGB CONC 31.8 g/dL (33.2-36.2); MEAN CORPUSCULAR VOLUME 94.1 fL (81-97); MONOCYTES # (AUTO) 0.55 x10^3/uL (0.2-0.8); MONOCYTES % (AUTO) 8 % (2-9); NEUTROPHILS # (AUTO) 5.14 x10^3/uL (1.8-6.8); NEUTROPHILS % (AUTO) 74 % (42-75); PLATELET COUNT 171 x10^3/uL (130-400); RED BLOOD COUNT 4.89 x10^6/uL (4.38-5.82)
[2019-10-26] MEDS ORDERED: ASPIRIN 81 MG TABLET CHEW ONE (10:27)
[2019-10-26] MEDS ORDERED: KETOROLAC 30 MG/1 ML ONE (10:27)
[2019-10-26] MEDS ORDERED: KETOROLAC 30 MG/1 ML IVPush ONE (10:30)
[2019-10-26] MEDS ORDERED: SODIUM CHLORIDE FLUSH 10ML SYR IVF ONE (10:30)
[2019-10-26] MEDS ORDERED: ASPIRIN 81 MG TABLET CHEW PO ONE (10:30)
--- NOTE | 2019-10-26 10:33 | NUR ---
CXR COMPLETED. PT MEDICATED PER MD ORDERS.
[2019-10-26 10:34] LABS: ALANINE AMINOTRANSFERASE 26 U/L (12-78); ALBUMIN 3.8 g/dL (3.4-5.0); ANION GAP 10 mmol/L (5-15); CALCIUM 8.4 mg/dL (8.5-10.1); CHLORIDE 107 mmol/L (98-107)
[2019-10-26 10:38] LABS: ALKALINE PHOSPHATASE 101 U/L (45-117); BILIRUBIN,TOTAL 0.5 mg/dL (0.2-1.0); TOTAL PROTEIN 7.7 g/dL (6.4-8.2); TROPONIN I < 0.015 ng/mL (0.000-0.045)
[2019-10-26] MEDS ORDERED: SODIUM CHLORIDE 0.9% 1,000ML IVBOLUS ONE (11:00)
--- NOTE | 2019-10-26 11:09 | NUR ---
MD AT BEDSIDE FOR REASSESSMENT. PLAN FOR ADMISSION. THIS RN NOTIFIED MD REGARDING PT'S OCCASSIONAL DROP IN HR TO 37. PT HAS BEEN CONSISTENTLY AFIB IN THE 40S DURING STAY ON MONITOR. PER MD, PLACE PACER PADS A PRECAUTION. MD AWARE THAT PT HAS HAD STABLE BP AND IS ASYMPTOMATIC. PACER PADS APPLIED APPROPRIATELY BY THIS RN.
--- NOTE | 2019-10-26 11:27 | NUR ---
ATTEMPTED TO DO MED REC WITH PT VIA [employer] HEAD ROBOT, PT STATES HE DOES NOT KNOW WHAT MEDS HE TAKES OR THE NAMES OF THEM, JUST THAT HE TAKES A LOT PER INTREPTER.
--- NOTE | 2019-10-26 11:27 | NUR ---
PT VOIDED IN URINAL, 200 ML CLEAR YELLOW URINE.
--- NOTE | 2019-10-26 11:57 | NUR ---
[facility] AT BEDSIDE.
[2019-10-26] MEDS: ACETAMINOPHEN 325 MG TABLET PO SCH ×3 (12:14→22:30)
[2019-10-26] MEDS ORDERED: ONDANSETRON 2MG/ML, 2ML IVPush PRN (12:30)
[2019-10-26] MEDS ORDERED: ONDANSETRON ODT 4 MG PO PRN (12:30)
[2019-10-26] MEDS ORDERED: POLYETHYLENE GLYCOL 17 GM PACKET PO PRN (12:30)
[2019-10-26 12:33] LABS: TROPONIN I < 0.015 ng/mL (0.000-0.045)
--- NOTE | 2019-10-26 12:46 | NUR ---
PT AMBULATORY WITH STEADY GAIT TO RESTROOM.
--- NOTE | 2019-10-26 12:57 | NUR ---
DIET TRAY ORDERED.
--- NOTE | 2019-10-26 13:14 | NUR ---
BEDSIDE REPORT GIVEN TO YANG GROVE. CARE TRANSFERRED.
--- NOTE | 2019-10-26 13:17 | NUR ---
BEDSIDE REPORT RECEIVED FROM YANG CLAIRE. ASSUMING CARE AT THIS TIME. PT RESTING IN ROOM. VSS. NO NEEDS EXPRESSED.
--- NOTE | 2019-10-26 13:31 | NUR ---
DIET TRAY PROVIDED.
--- NOTE | 2019-10-26 15:11 | NUR ---
PT RESTING IN ROOM. VSS. NO NEEDS EXPRESSED. CALL LIGHT WITHIN REACH. HYDRALAZINE NOT ADMINISTERED D/T LOW HR (DOWN TO 30S) AND NORMOTENSION. AWAITING ROOM ASSIGNMENT.
--- NOTE | 2019-10-26 15:22 | NUR ---
TASK RN NOTE: PT SITTING UP IN BED, NAD NOTED AT THIS TIME. AWAITING TELE ASSIGNMENT.
--- NOTE | 2019-10-26 16:36 | NUR ---
Note arron in ED - 10/26/19 at 1637 by [email or web address] PT RESTING IN ROOM. VSS. IVF STARTED. FLOOR ORDERS RECEIVED. PT TO CT AT THIS TIME.
[2019-10-26 18:05] LABS: TROPONIN I < 0.015 ng/mL (0.000-0.045)
--- NOTE | 2019-10-26 19:35 | NUR ---
PT TO ROOM 35, CARE TRANSFERRED TO DRESSMAKER OR TAILOR.
[2019-10-26] MEDS ORDERED: AMLODIPINE 2.5 MG TABLET PO SCH (21:00)
[2019-10-26] MEDS ORDERED: MIRTAZAPINE 15 MG TABLET PO SCH (21:00)
[2019-10-26 21:14] VITALS: BP 145/67
[2019-10-26] MEDS ORDERED: AMLODIPINE 5 MG TABLET PO SCH (21:14)
[2019-10-26] MEDS: FUROSEMIDE 40 MG TABLET PO SCH (22:02)
[2019-10-26 22:14] LABS: INTERNATIONAL NORMALIZED RATIO 2.54 (0.93-1.1); PROTHROMBIN TIME 25.7 Seconds (9.6-11.5)
[2019-10-26] MEDS ORDERED: WARFARIN 3 MG TABLET PO-COUM ONE (22:30)
[2019-10-27 01:32] VITALS: BP 157/84
[2019-10-27] MEDS: ACETAMINOPHEN 325 MG TABLET PO SCH ×2 (01:37→11:10)
[2019-10-27 06:05] LABS: BASOPHILS # (AUTO) 0.03 x10^3/uL (0-0.1); BASOPHILS % (AUTO) 0 % (0-1); EOSINOPHILS # (AUTO) 0.41 x10^3/uL (0-0.4); EOSINOPHILS % (AUTO) 7 % (1-7); LYMPHOCYTES # (AUTO) 1.18 x10^3/uL (1-3.4); LYMPHOCYTES % (AUTO) 19 % (22-44); MD NO; MEAN CORPUSCULAR HEMOGLOBIN 30.1 pg (27.5-34.5); MEAN PLATELET VOLUME 9.5 fL (7.4-10.4); MONOCYTES # (AUTO) 0.68 x10^3/uL (0.2-0.8); MONOCYTES % (AUTO) 11 % (2-9); NEUTROPHILS # (AUTO) 3.86 x10^3/uL (1.8-6.8); NEUTROPHILS % (AUTO) 63 % (42-75); PLATELET COUNT 153 x10^3/uL (130-400); RED BLOOD COUNT 4.44 x10^6/uL (4.38-5.82); RED CELL DISTRIBUTION WIDTH 16.1 % (9.4-14.8)
[2019-10-27 06:08] LABS: INTERNATIONAL NORMALIZED RATIO 2.64 (0.93-1.1); PROTHROMBIN TIME 26.7 Seconds (9.6-11.5)
[2019-10-27 06:13] LABS: ANION GAP 7 mmol/L (5-15); CALCIUM 8.4 mg/dL (8.5-10.1); CHLORIDE 111 mmol/L (98-107)
[2019-10-27 08:21] VITALS: BP 137/68
[2019-10-27] MEDS ORDERED: ALLOPURINOL 100 MG TABLET PO SCH (09:00)
[2019-10-27] MEDS ORDERED: POTASSIUM CHLORIDE 20 MEQ TAB.ER.PRT PO SCH (09:00)
[2019-10-27] MEDS ORDERED: TAMSULOSIN 0.4 MG CAP.ER.24H PO SCH (09:00)
[2019-10-27] MEDS: FUROSEMIDE 40 MG TABLET PO SCH (09:48)
[2019-10-27] MEDS ORDERED: HYDR-3342 PO (10:24)
[2019-10-27] MEDS ORDERED: ALLO100T30 PO (10:24)
[2019-10-27] MEDS ORDERED: WARFARIN 3 MG TABLET PO-COUM ONE (18:00)
== END 2019-10-27 14:25 | disposition home or self-care (01) ==
LOC: ED 11:10 → EDIP 11:16 → INTOOBSV 11:16 → 5SO 21:03 → DCLOUNGE 10-27 14:11
PROVIDERS: ADMIT Internal Medicine; ATTEND Internal Medicine
DX: R07.89 Other chest pain (principal); I13.0 Hypertensive heart and chronic kidney disease with heart failure and stage 1 through stage 4 chronic kidney disease, or unspecified chronic kidney disease; I48.20 Chronic atrial fibrillation, unspecified; G47.30 Sleep apnea, unspecified; M10.9 Gout, unspecified; E66.9 Obesity, unspecified; N17.9 Acute kidney failure, unspecified; N18.3 Chronic kidney disease, stage 3 (moderate); N40.0 Benign prostatic hyperplasia without lower urinary tract symptoms; G47.00 Insomnia, unspecified; I50.32 Chronic diastolic (congestive) heart failure; D68.69 Other thrombophilia; Z79.01 Long term (current) use of anticoagulants; Z87.891 Personal history of nicotine dependence
CPT/HCPCS: 36415; 71045; 80048; 80053; 83880; 84484; 85025; 85379; 85610; 93005; 99291; G0378; J7030

== ENCOUNTER 2021-05-31 09:25 | Emergency (ER) | payer MEDICARE, MEDICAID ==
[~2021-05-31] VITALS: Ht 182.9 cm; Wt 112.1 kg
[~2021-05-31 09:25] MED LIST changes: +ALLO100T30 PO; +AMLO-211 PO; +DOCU-186 PO; +HYDR-3342 PO; +MIRT-14 PO; -MIRT-34 PO
[2021-05-31 09:31] VITALS: BP 118/89
== END 2021-05-31 10:34 | disposition home or self-care (01) ==
LOC: ED 10:20
DX: L40.0 Psoriasis vulgaris (principal); I10 Essential (primary) hypertension
CPT/HCPCS: 99283